=== PATIENT | male | born 1960 | race Caucasian/White ===

== ENCOUNTER → 2016-09-25 | Outpatient (CLI) | payer BC ==
--- NOTE | 2016-09-25 19:40 | PN ---
Patient is coming in for a compliancy check regarding his YOSVANY treatment. He has severe YOSVANY and currently he is on CPAP pressure of 13 cm of water. His main complaint is some leak of air through his mouth and dryness in his mouth when he wakes up and apparently the patient is a mouth breather and he is having difficulties wearing his Mirage FX nose pillow. Despite this, he is doing well, alert and awake during the day and he states the treatment itself has been a success. His AHI while on treatment is down to 3.2. His CPAP use for more than 4 hours is 29 out of 30 and the patient's average CPAP use is around 6.3 hours per night. His leak factor is 29 liters per minute. The patient is obese. The patient's Boss score is down to 8. The patient is obese and he has gained around 8 to 9 pounds since his [facility]. His current vitals: BP is 136/80, pulse 68, respirations 18, temperature 97.5%, saturation 97% on room air. Weight is 241. Height 67 inches. Boss score is at 8. BMI is 37.1. GENERAL APPEARANCE: Obese, calm, comfortable. HEENT: Short neck, crowding posterior pharynx. There is no goiter, neck masses. LUNGS: Clear to auscultation. HEART: Sounds are regular rate and rhythm. Normal S1, S2. ABDOMEN: Soft, nontender. No organomegaly. EXTREMITIES: No edema. No cyanosis or clubbing. IMPRESSIONS: 1. Symptomatic obstructive sleep apnea, severe, currently on CPAP pressure of 13 cm of water. Compliance data is adequate with exception of increased leaks from his mouth as the patient is a mouth breather and he needs to be switched to a different mask interface. 2. Obesity with a body mass index of 37.1. 3. Hypersomnia, improved. PLAN: 1. Switch this patient to an AirFit F10 medium-sized mask. 2. Continue CPAP therapy at the level of pressure. 3. Treatment is successful. 4. See me back in a year's time in follow-up.
== END | disposition home or self-care (01) ==

== ENCOUNTER → 2017-10-01 | Outpatient (CLI) | payer BC ==
--- NOTE | 2017-10-01 20:31 | PN ---
PROGRESS NOTE This patient is coming in for an annual check regarding obstructive sleep apnea. The patient was maintained on a CPAP pressure of 13 cm of water. Note that he has been having some issues with sleep hygiene. His sleep schedule has been a bit off, knowing that the patient is going to work at around 4:15 a.m. in the morning. The patient is going to bed around 9 p.m. and waking up at 2 a.m. in the morning. Sometimes it takes him more than an hour to fall asleep, and I came to find out that the patient was taking a 2-hour nap after he comes back from work. This needs to be eliminated. The CPAP treatment in general has been successful, as the patient is maintained on CPAP pressure of 13 cm of water and he has been averaging more than 4 hours of CPAP use per night and his AHI while on treatment is down to 2. His weight is also up by around 7 pounds. He used to weight 241 and he is currently up to 248. He has undergone [address] Perea. BP is 152/86, pulse 68, respiration 16, temperature 97.4. Saturation is 98% on room air. Weight is 248. Height is 5 feet 7 inches. GENERAL APPEARANCE: Calm, comfortable. Head is atraumatic, normocephalic. Neck is short, supple. No goiter Mallampati class 4. LUNGS: Clear to auscultation. Heart sounds are regular rate and rhythm. Normal S1, S2. Abdomen is soft, nontender. No organomegaly. EXTREMITIES: No edema. No cyanosis or clubbing. IMPRESSION: 1. Symptomatic obstructive sleep apnea, currently on CPAP pressure of 13 cm of water. 2. Poor sleep hygiene, as the patient is taking naps and he is limiting his sleep hours at night. Appropriate have been made to make adjustments on his sleep schedule. 3. Obesity with interval 7-pound weight gain. Current BMI is up to 38. 4. Chronic tiredness and fatigue. 5. Hypertension. PLAN: 1. Encourage weight loss. 2. Optimize sleep hygiene measures and sleep schedule and eliminate all forms of naps in the afternoon or early evening. 3. Go to bed somewhat earlier at around 8 to allow himself to take approximately 6 hours of sleep at night. 4. Continue CPAP at same level of pressure. Treatment has been successful as far as pressure setting and mask interface. We will continue to follow and make further recommendations based on his progress. For now, his CPAP pressure will be kept unchanged. MOHAN / CONNERN: [id number] /
== END | disposition home or self-care (01) ==
LOC: SLEEP 15:53
PROVIDERS: ATTEND Internal Medicine Critical Care Medicine
DX: G47.33 Obstructive sleep apnea (adult) (pediatric) (principal); E66.9 Obesity, unspecified; I10 Essential (primary) hypertension; R53.83 Other fatigue; Z68.38 Body mass index [BMI] 38.0-38.9, adult; Z99.89 Dependence on other enabling machines and devices

== ENCOUNTER → 2018-06-28 | Outpatient (CLI) | payer BC ==
--- NOTE | 2018-06-28 08:00 | MR ---
MR lumbar spine wo con Low back pain Multiplanar, multiecho imaging of the lumbar spine was obtained without contrast on a 3 Shirley magnet. REFERENCE:None. FINDINGS: Paraspinal soft tissues are normal. Vertebral body height and alignment are maintained. Cord signal is maintained. The conus ends normally at the level of the superior endplate of L1. At T12-L1, there is mild disc space loss. Intervertebral widely maintained. There is no significant c ompressive discopathy. There is mild hypertrophic changes in the facets. At L1-2, there is disc space loss and disc desiccation. Intervertebral foramina are well maintained. There is no significant compressive discopathy. There are mild hypertrophic changes in the facets. At L2-3, there is mild, bilateral intervertebral foraminal narrowing. There is a diffuse disc displac ement. There is mild trefoiling of the thecal sac. There is mild hypertrophic change and capsulitis w ithin the facets. At L3-4, there is mild, bilateral intervertebral foraminal narrowing. There is a diffuse disc displac ement. There are hypertrophic changes in the facets. There is mild trefoiling of the thecal sac. At L4-5, there is mild, bilateral intervertebral foraminal narrowing. There is a diffuse disc displac ement. There are severe hypertrophic changes in the facets. There is moderate central canal stenosis. At L5-S1, the intervertebral foramina are well maintained. There is no significant compressive discop athy. There is facet arthropathy and capsulitis. IMPRESSION: 1. DIFFUSE DEGENERATIVE DISC DISEASE AND FACET ARTHROPATHY. 2. VARYING DEGREES OF CENTRAL CANAL COMPROMISE, MOST SEVERE AT L4-5. 3. MULTILEVEL INTERVERTEBRAL FORAMINAL NARROWING.
== END | disposition home or self-care (01) ==
LOC: RADMRIMAIN 07:03
PROVIDERS: ATTEND Family Medicine
DX: M99.73 Connective tissue and disc stenosis of intervertebral foramina of lumbar region (principal); M51.36 Other intervertebral disc degeneration, lumbar region; M46.96 Unspecified inflammatory spondylopathy, lumbar region; G89.29 Other chronic pain
CPT/HCPCS: 72148

== ENCOUNTER → 2018-11-04 | Outpatient (CLI) | payer BC ==
--- NOTE | 2018-11-04 18:27 | PN ---
PROGRESS NOTE This is a 57-year-old male patient coming in for an annual check regarding obstructive sleep apnea treatment. The patient is being treated with a CPAP pressure of 13 cm of water. He remains very compliant. The patient is using a Mirage FX nose mask. Based on the compliance data, the patient has been utilizing his CPAP 25 out of the past 30 days. His average use is around 4.3 hours per night. Leak factor is 28 liters/minute. AHI is down to 3.9. He wakes up early to go to work, and this has limited his number of hours of sleep. Attempts to increase the sleep hours have failed, as I have made recommendations in the past. PHYSICAL EXAMINATION: HIS CURRENT VITALS: BP is 136/73, pulse 80, respirations 17, temperature 98.0, saturation 97% on room air. Weight is 246. Height is 67. [place] score is 8. GENERAL APPEARANCE: Obese, calm, comfortable. Head is atraumatic, normocephalic. Neck is short. There is no JVD. No goiter or neck masses. LUNGS: Diminished; otherwise clear. Heart sounds are regular rate and rhythm. Normal S1, S2. No S3, S4. No murmurs. ABDOMEN: Soft, nontender. No organomegaly. EXTREMITIES: No edema. No cyanosis or clubbing. NEUROLOGIC: The patient is alert and oriented x3. There is no focal neurological deficit. IMPRESSION: 1. Symptomatic obstructive sleep apnea, currently on CPAP at a pressure of 13. 2. Leaks around his Mirage FX nose mask. 3. Obesity. 4. Chronic fatigue and sleepiness, improved. 5. Hypertension. 6. Insufficient sleep syndrome. PLAN: 1. Increase the number of hours of sleep by going to bed earlier. 2. Continue CPAP at a pressure of 13 cm of water. 3. Offer this patient an AirFit N20 nose mask, which will give him a better seal. 4. See me back in 2 years' time in followup. Treatment in general has been successful. MMODL / IJN: [id number] /
== END ==
LOC: SLEEP 16:34
PROVIDERS: ATTEND Internal Medicine Critical Care Medicine
DX: G47.33 Obstructive sleep apnea (adult) (pediatric) (principal); E66.9 Obesity, unspecified; R53.83 Other fatigue; I10 Essential (primary) hypertension; Z99.89 Dependence on other enabling machines and devices

== ENCOUNTER 2019-01-05 09:20 | Day surgery (SDC) | payer BC ==
[2018-12-31 11:15] VITALS: BMI 35.1
[~2019-01-05 09:20] MED LIST: LACTATED RINGERS 1,000 ML IV SCH; LIDOCAINE 1% 20 ML VIAL (10MG/ML) FOR IV START INTRADERMA PRN
[2019-01-05 10:19] VITALS: RESP 16; TEMP 98.6
[2019-01-05] MEDS ORDERED: fentaNYL (PF) 50 MCG/ML 2 ML AMP ONE (11:30)
[2019-01-05] MEDS ORDERED: PROPOFOL 10 MG/ML 20 ML VIAL IV ONE (11:30)
[2019-01-05] MEDS ORDERED: LIDOCAINE 1% INJ 10MG/ML (20 ML MDV) ONE (11:30)
[2019-01-05] MEDS ORDERED: MIDAZOLAM 2 MG/2 ML VIAL ONE (11:30)
--- NOTE | 2019-01-05 12:00 | P.PCN ---
Date of Procedure: 01/05/19 Procedure(s) Performed: Procedure: Total colonoscopy. Preoperative diagnosis: Screening for neoplasia, patient has history of polyps. Postoperative diagnosis: Sigmoid diverticulosis with no evidence of acute diverticulitis, strictures, polyps or cancer. Preparation: HalfLytely prep. Sedation: Was provided by anesthesia. Brief clinical history: The patient a 58-year-old male who is scheduled for this evaluation for screening for neoplasia, age being his risk factor as well as history of polyps. His last exam was 10 years ago. The patient has no abdominal complaints, bleeding or anemia. Procedure: With the patient on his left lateral decubitus position and after informed consent and adequate sedation, the perianal area was inspected and it did not show any fissures or fistulas. There were no masses felt on digital rectal examination. The Olympus CFH 190L video colonoscope was then inserted in the rectum in the usual fashion and advanced to the cecum. There were several diverticular orifices seen scattered in the sigmoid with no evidence of acute diverticulitis or strictures. The mucosa appeared healthy. No polyps or tumors were seen. I retroflexed the endoscope in the rectum before the endoscope was withdrawn. Low-grade internal hemorrhoids were noted with no evidence of ble eding. The patient tolerated the procedure well. Plan: The patient was reassured. Discussed dietary measures. In light of his history, I recommended repeat exam in 5 years. He will follow up with you as planned.
[2019-01-05 12:15] VITALS: BP 157/79; PULSE 72
== END 2019-01-05 12:32 | disposition home or self-care (01) ==
LOC: ORWHC2ENDO 09:20
DX: Z12.11 Encounter for screening for malignant neoplasm of colon (principal); K57.30 Diverticulosis of large intestine without perforation or abscess without bleeding; Z86.010 Personal history of colon polyps; I10 Essential (primary) hypertension; E78.5 Hyperlipidemia, unspecified; G47.33 Obstructive sleep apnea (adult) (pediatric); K21.9 Gastro-esophageal reflux disease without esophagitis; K64.8 Other hemorrhoids; Z79.899 Other long term (current) drug therapy
CPT/HCPCS: J2250; J2001; J3010; J2704; G0105

== ENCOUNTER → 2019-03-09 | Outpatient (CLI) | payer BC ==
--- NOTE | 2019-03-09 23:19 | MR ---
EXAMINATION TYPE: MR tspine/lspine wo con DATE OF EXAM: 03/09/2019 COMPARISON: MR scan lumbar spine 06/28/2018 HISTORY: Mid/lower back pain, BLE radic x 1 yr TECHNIQUE: Multiplanar, multisequence imaging of the lumbar and thoracic spine is performed without I V contrast. FINDINGS: The thoracic and lumbar vertebra have fairly normal alignment. Disc spaces are slightly dereck rowed in the upper lumbar spine at L1-2 and L2-3. There is no significant loss of height. Lumbar nerv e roots appear normal. I see no significant lumbar neural foraminal narrowing. There is no thoracic paraspinal mass. There is no sign of thoracic spinal stenosis. There is no compr ession fracture of the thoracic spine. Thoracic spinal cord has fairly normal signal pattern without evidence of edema. There is no evidence of a cord mass. Brainstem appears intact. There is mild lateral recess stenosis due to facet arthrop athy at L4-5. IMPRESSION: Mild spondylotic changes in the upper lumbar spine. Mild facet arthropathy and lateral recess stenosi s at L4-5. No significant spinal stenosis. No compression fracture. No significant abnormality of the thoracic spine. There is no significant change of the lumbar spine compared to old exam.
== END | disposition home or self-care (01) ==
LOC: RADMRIMAIN 16:50
DX: M99.73 Connective tissue and disc stenosis of intervertebral foramina of lumbar region (principal); M47.816 Spondylosis without myelopathy or radiculopathy, lumbar region; M46.96 Unspecified inflammatory spondylopathy, lumbar region; G89.29 Other chronic pain
CPT/HCPCS: 72146; 72148

== ENCOUNTER → 2019-03-13 | Outpatient (CLI) | payer BC ==
--- NOTE | 2019-03-14 08:00 | MR ---
EXAMINATION TYPE: MR knee LT wo con DATE OF EXAM: 03/13/2019 COMPARISON: None HISTORY: Pain TECHNIQUE: Multiplanar, multisequence imaging of the left knee is performed without IV contrast. FINDINGS: There is narrowing of medial compartment joint space. No erosive changes seen. A large area of marrow edema or contusion involving the medial tibial plateau which may be reactive. There is globular abnormal signal posterior horn of the lateral meniscus suggestive of mucoid degener ation. Globular abnormal signal which does extend to the articular surface involving the posterior ho rn of the medial meniscus suggestive of degenerative tear. There is increased fluid surrounding the MCL. No definite disruption of fibers. Findings are suggesti ve of MCL sprain. There is increased signal within the semimembranosus tendon insertion suggestive of tendinopathy. Subcutaneous edema incidentally noted. Patellar and quadriceps tendons intact. There is fibrillation of the patellar cartilage. Small amount of fluid in the suprapatellar bursa. Lateral collateral ligament is intact. Anterior cruciate ligament is intact. There is increased thick ness signal and thickening involving the body and femoral insertion of the PCL compatible with partia l tear. No fracture line. No sizable popliteal fossa cyst. IMPRESSION: 1. Partial tear PCL 2. MCL strain with no definite tear. 3. Mucoid degeneration involving both menisci with suspicion for degenerative posterior horn medial m eniscal tear. 4. Large area of marrow edema or contusion involving the tibial plateau may be reactive. 5. Osteoarthritis medial compartment of the joint space. 6. Chondromalacia patellar cartilage. 7. There is increased signal N the distal margin of the semimembranosus tendon compatible with tendin osis.
== END | disposition home or self-care (01) ==
LOC: RADMRIMAIN 16:19
DX: S83.282A Other tear of lateral meniscus, current injury, left knee, initial encounter (principal); S83.521A Sprain of posterior cruciate ligament of right knee, initial encounter; S83.242A Other tear of medial meniscus, current injury, left knee, initial encounter; S83.412A Sprain of medial collateral ligament of left knee, initial encounter; M17.12 Unilateral primary osteoarthritis, left knee; M22.42 Chondromalacia patellae, left knee; M76.60 Achilles tendinitis, unspecified leg

== ENCOUNTER → 2020-03-08 | Outpatient (CLI) | payer BC ==
--- NOTE | 2020-03-08 15:09 | PN ---
PROGRESS NOTE Quinton is 59 coming in for an annual check regarding obstructive sleep apnea. He has a [employer]Med AutoSet unit which is fixed at a pressure of 13 cm of water. The patient has been having difficulty in it failing and as such his compliance has gone down. He has gained around 6 pounds since his last evaluation. He has developed spinal stenosis and he is having difficulty with mobility and gait. He is also having a meniscal problem in his left knee. He is not taking any form of narcotics. His medication remains a combination of verapamil and Lipitor. Rest of vitals are all stable. I checked the compliance data from his machine and based on a 90 day compliance,has utilized his machine around 2/3 of the time. His compliancy for more than 4 hours is 37/90 with an average usage of 4.4 hours per night. AHI is 8.6 with a 5.1 central events. He is using a Mirage FX nose mask. REVIEW OF SYSTEMS: Fourteen-point review of system was done. Positive findings are mentioned in history of present illness. He is having difficulty with mobility and gait and chronic back pain. PHYSICAL EXAMINATION: His current vitals: BP is 126/79, pulse 78, respirations 16, temperature 98.2. Saturation 97% on room air. Height is 5 feet 7 inches, weight is 251, BMI 38.8. General appearance: Calm, comfortable. Head atraumatic, normocephalic. Neck: Supple. There is no JVD. No goiter or neck mass. Lungs diminished otherwise clear. Heart sounds are regular rate and rhythm, normal S1, S2. Abdomen is obese, soft, nontender. Organs cannot be palpated. Extremities: No edema no cyanosis or clubbing. Neurologic: Awake and alert. There are no focal neurological deficits. IMPRESSION: 1. Obstructive sleep apnea, currently on CPAP pressure of 13. The patient is having difficulty tolerating CPAP pressure due to exhalation issues. He has also developed some central events and his overall apnea-hypopnea index while on treatment is above 5. There is some limited weight gain. No use of narcotics. No substance abuse. No alcoholism. He is having issues with chronic back pain and spinal stenosis and mobility and gait. 2. Obesity. 3. Chronic fatigue and sleepiness. 4. Hypertension. PLAN: I will switch this patient to an APAP mode. I lowered the starting pressure and start him at a pressure of 7 with an automatic ramp and his maximum pressure will be set at 20. He will be kept on same mask interface. He will be encouraged to lose weight. The patient will see me back in 4 6 weeks' time. We will make re-evaluation of his compliancy and data and his ability to tolerate APAP and will decide accordingly if to continue to treatment or do another titration. We will continue to follow. MOHAN / CONNERN: [id number] /
== END | disposition home or self-care (01) ==
LOC: SLEEP 13:12
PROVIDERS: ATTEND Internal Medicine Critical Care Medicine
DX: G47.33 Obstructive sleep apnea (adult) (pediatric) (principal); E66.9 Obesity, unspecified; R53.82 Chronic fatigue, unspecified; I10 Essential (primary) hypertension; G89.29 Other chronic pain; M54.9 Dorsalgia, unspecified; R26.9 Unspecified abnormalities of gait and mobility; Z99.89 Dependence on other enabling machines and devices; Z68.38 Body mass index [BMI] 38.0-38.9, adult

== ENCOUNTER → 2020-03-17 | Day surgery (SDC) | payer BC ==
[2020-03-10 12:10] VITALS: BMI 37.3
--- NOTE | 2020-03-16 16:57 | HP ---
HISTORY AND PHYSICAL DATE OF SERVICE: 03/17/2020 Quinton Merida is a 59-year-old patient seen with progressive left knee pain. We discussed options. He elected to proceed with arthroscopy. Consent regarding procedure was obtained. PAST MEDICAL HISTORY: Hypertension, hyperlipidemia. PAST SURGICAL HISTORY: Sinus surgery, spine surgery, herniorrhaphy. DAILY MEDICATIONS: Atorvastatin, verapamil. ALLERGIES: None. SOCIAL HISTORY: Denies tobacco use. PHYSICAL EVALUATION OF THE LEFT KNEE: Range of motion is -2/3-120. Mild effusion. Tenderness medial joint line. Positive medial Jl's. Ligaments stable. Hip rotation without pain. Distal neurovascular exam intact. RADIOGRAPHS OF THE LEFT KNEE: Revealed moderate osteoarthritis. MRI left knee revealed medial meniscal tear and osteoarthritis. IMPRESSION: 1. Internal derangement, left knee with medial meniscal tear. 2. Left knee osteoarthritis. 3. Hypertension. 4. Hyperlipidemia. PLAN: Left knee arthroscopy with partial meniscectomy, partial synovectomy and debridement. MMODL / IJN: [id number] /
[~2020-03-17] MED LIST changes: +BUPIVACAINE (PF) 0.25% 30 ML VIAL SQ ONE; +DEXAMETHASONE SOD PHOSPHATE 10 MG/ML 1 ML VIAL IV ONE; +HYDROcodone/APAP 5-325MG 1 EACH TAB ONE; +HYDROcodone/APAP 5-325MG 1 EACH TAB PO ONE; +HYDROmorphone 0.5 MG/0.5 ML SYRINGE IVP PRN; +LIDOCAINE 1% (10MG/ML) FOR IV START SQ ONE; -LIDOCAINE 1% 20 ML VIAL (10MG/ML) FOR IV START INTRADERMA PRN; +LIDOCAINE 1% INJ 10MG/ML (20 ML MDV) ONE; +MIDAZOLAM 2 MG/2 ML VIAL ONE; +ONDANSETRON 4 MG/2 ML VIAL IVP ONE; +ONDANSETRON 4 MG/2 ML VIAL ONE; +PROPOFOL 10 MG/ML 20 ML VIAL IV ONE; +SUCCINYLCHOLINE CHLORIDE 100 MG/5 ML SYR IV ONE; +fentaNYL (PF) 50 MCG/ML 2 ML AMP ONE
--- NOTE | 2020-03-17 16:18 | P.OP ---
Date of Procedure: 03/17/20 Preoperative Diagnosis: Internal derangement left knee Postoperative Diagnosis: 1. Tear medial meniscus left knee 2. Grade 2 chondromalacia medial femoral condyle left knee 3. Reactive synovitis medial, lateral and suprapatellar compartments left Procedure(s) Performed: 1. Arthroscopic partial medial meniscectomy left knee 2. Arthroscopic chondroplasty medial femoral condyle left knee 3. Arthroscopic partial synovectomy medial, lateral and suprapatellar compartments left knee Anesthesia: [facility], local Surgeon: Stephon Vaughn Estimated Blood Loss (ml): 7 Pathology: none sent Condition: stable Disposition: PACU Indications for Procedure: 59-year-old patient seen with progressive left knee pain. After treatment options were discussed, he elected to proceed with arthroscopy. Operative Findings: See description of procedure Description of Procedure: Patient was taken to the operative suite. Patient underwent a general anesthetic by the department of anesthesia. Patient was given preoperative antibiotics. The left lower extremity was placed in a well-padded arthroscopic leg clinton. The left leg was prepped and draped in the normal sterile orthopedic fashion. A lateral parapatellar and suprapatellar incision was made. Trochars were inserted. Arthroscopy was initiated. Suprapatellar pouch revealed diffuse thick reactive synovitis. The patellofemoral joint appeared to articulate congruently. There were grade 1 chondromalacia changes of the patella with no osteochondral tears present. The scope was guided into the medial gutter. No loose bodies or plica were identified. The scope was then guided into the medial compartment. A medial parapatellar incision was made. Trocar inserted followed by probe. There was a tear involving the posterior horn/Route medial meniscus. There were grade 2 chondral malacia changes of the medial femoral condyle with some osteochondral flap tears present. There was thick reactive synovitis anteriorly. I performed a partial medial meniscectomy. I performed a chondroplasty of the medial femoral condyle. I performed a partial synovectomy. The residual meniscus was stable. The residual osteochondral surface was stable. There was good decompression of the synovitis. Scope and probe were then guided into the intercondylar notch. Cruciates were identified, probed and found to be stable. The scope and probe were then guided into lateral compartment. Lateral meniscus was probed and found to be stable. There was no significant chondromalacia. There was some thick reactive synovitis anteriorly. I introduced a motorized shaver and perfo rmed a partial synovectomy. There was good decompression of the synovitis. The scope was in guided back into the suprapatellar compartment. I introduced a motorized shaver into the suprapatellar compartment. I debrided some piecemeal fragments of meniscus I encountered. I performed a partial synovectomy. Shaver was removed. I took one more look on the entire knee, no residual debris. Instruments were now removed from the joint. The joint was infiltrated with .25% Marcaine. Steri-Strips were applied to the portal sites. Sterile dressings were applied. The patient was placed into a ALLEN hose. No tourniquet was utilized. The patient was awakened, transferred to a bed and taken to recovery stable satisfactory condition.
[2020-03-18 06:06] VITALS: BP 161/87; PULSE 67; RESP 16; TEMP 96.8
== END | disposition home or self-care (01) ==
LOC: OR 11:26
PROVIDERS: ATTEND Orthopaedic Surgery
DX: S83.242A Other tear of medial meniscus, current injury, left knee, initial encounter (principal); M94.262 Chondromalacia, left knee; M17.12 Unilateral primary osteoarthritis, left knee; M65.9 Synovitis and tenosynovitis, unspecified; M48.061 Spinal stenosis, lumbar region without neurogenic claudication; M51.36 Other intervertebral disc degeneration, lumbar region; I10 Essential (primary) hypertension; E78.2 Mixed hyperlipidemia; E66.9 Obesity, unspecified; K59.04 Chronic idiopathic constipation; K21.9 Gastro-esophageal reflux disease without esophagitis; G47.33 Obstructive sleep apnea (adult) (pediatric); G47.30 Sleep apnea, unspecified; Z79.51 Long term (current) use of inhaled steroids; Z79.899 Other long term (current) drug therapy; Z85.820 Personal history of malignant melanoma of skin; Z82.49 Family history of ischemic heart disease and other diseases of the circulatory system; Z99.89 Dependence on other enabling machines and devices; Z87.19 Personal history of other diseases of the digestive system; Z68.38 Body mass index [BMI] 38.0-38.9, adult
CPT/HCPCS: 29881; 29876; J2250; J1100; J0690; J2405; J2001; J3010; J0330; J2704

== ENCOUNTER → 2020-05-17 | Outpatient (CLI) | payer BC ==
--- NOTE | 2020-05-17 15:31 | PN ---
PROGRESS NOTE This is a 59-year-old male patient coming in for a followup. The patient was last seen around 3 months ago, and back then he was having difficulty tolerating his CPAP machine. It was set at a pressure of 13 cm of water. Based on that, I switched him to an APAP mode with a minimum pressure of 7 and a maximum pressure of 20, and today he is coming in for another compliancy check. His average usage number has improved. It is up to 5.4 hours. His tolerability has improved. He is still using the Mirage FX nose mask. His AHI is still at 8.3 with a component of central events with a central apnea index of 5.1. He has gained around 3 pounds since his last evaluation. He is having knee pain. He is having difficulty with mobility, as the patient has spinal stenosis and sciatica. Otherwise, the rest of the medications are the same. Pulse ox on room air is 97%. No gastric distention. No swallowing of air. No gas. No chest pain. No shortness of breath. Heart no heartburn. REVIEW OF SYSTEMS: Unchanged compared to his last evaluation. He is still having difficulty with mobility and gait and walking and he has gained around 3 pounds. He has chronic back pain and sciatica. PHYSICAL EXAMINATION: BP 144/84, pulse 84, respirations 16, temperature 98.1, saturation 97% on room air. Height is 5 feet 7 inches, weight is 254, BMI is 39.4. [place] score is at 4. GENERAL APPEARANCE: Calm, comfortable. HEAD: Atraumatic, normocephalic. NECK: Supple. No JVD. No goiter or neck masses. LUNGS: Clear to auscultation. HEART: Heart sounds are regular rate and rhythm. Normal S1, S2. No S3, S4. No murmurs. ABDOMEN: Soft, nontender. No organomegaly. EXTREMITIES: No edema. No cyanosis or clubbing. NEUROLOGIC: Awake and alert. There is no focal neurological deficit. IMPRESSION: 1. Obstructive sleep apnea, currently on APAP, minimum pressure of 7, maximum pressure of 20. 2. Hypersomnia, improving. 3. Obesity with a body mass index of 39.1. 4. Sciatica. 5. Spinal stenosis. 6. Meniscal tear of the knee. 7. Hypertension. PLAN: 1. Continue APAP mode of treatment at a minimum pressure of 7, maximum pressure of 20. 2. Mirage FX nose mask. 3. Encourage weight loss. 4. A few central events were noted. We are going to monitor those. See me back in a year's time. MMPARVEZ / IJN: [id number] /
== END | disposition home or self-care (01) ==
LOC: SLEEP 13:35
PROVIDERS: ATTEND Internal Medicine Critical Care Medicine
DX: G47.33 Obstructive sleep apnea (adult) (pediatric) (principal); G47.10 Hypersomnia, unspecified; E66.9 Obesity, unspecified; I10 Essential (primary) hypertension; M54.30 Sciatica, unspecified side; M48.00 Spinal stenosis, site unspecified; S83.209A Unspecified tear of unspecified meniscus, current injury, unspecified knee, initial encounter; Z68.39 Body mass index [BMI] 39.0-39.9, adult; Z99.89 Dependence on other enabling machines and devices

== ENCOUNTER → 2020-10-05 | Outpatient (CLI) | payer BC ==
--- NOTE | 2020-10-05 20:50 | MR ---
EXAMINATION TYPE: MR lumbar spine wo con DATE OF EXAM: 10/05/2020 COMPARISON: 06/28/2018 HISTORY: Low back pain for 2 years. CONTRAST: 0 mL intravenous Gadavist. TECHNIQUE: Multiplanar, multisequence images of the lumbar spine were acquired. FINDINGS: Cord terminates at the L1 level. L5-S1: No significant disc bulge or disc herniation. No foraminal stenosis. Facet hypertrophy is pr esent. Some ligamentum flavum laxity is present. No lateral canal narrowing is present. No AP spinal canal stenosis is present. L4-L5: Broad-based disc bulge is present. This has mild anterior thecal sac flattening. Facet hypertr ophy and ligamentum flavum laxity has posterior lateral thecal sac compression. Some lateral canal na rrowing is present. No AP spinal canal stenosis is present. Neural foramen are patent. L3-L4: Minimal disc bulge has anterior thecal sac contact. No spinal canal stenosis present. Facet hy pertrophy and posterior lateral thecal sac compression from ligamentum flavum laxity is present. Neur al foramen are patent. L2-L3: No significant disc bulge or disc herniation. No spinal canal stenosis. No foraminal stenosi s. L1-L2: No significant disc bulge or disc herniation. No spinal canal stenosis. No foraminal stenosi s. T12-L1: No significant disc bulge or disc herniation. No spinal canal stenosis. No foraminal stenos is. IMPRESSION: 1. Facet hypertrophy through the mid and lower lumbar spine. This appears greatest at the L4-5 level contributing to some lateral canal narrowing. Some milder osteophyte lateral thecal sac compression i s present L3-4 and L5-S1. 2. Mild disc bulge with anterior thecal sac contact. No AP spinal canal stenosis is present. 3. Findings appear similar to the comparison of 06/28/2018.
== END | disposition home or self-care (01) ==
LOC: RADMRIMAIN 19:37
PROVIDERS: ATTEND Orthopaedic Surgery
DX: M48.061 Spinal stenosis, lumbar region without neurogenic claudication (principal); M51.26 Other intervertebral disc displacement, lumbar region; M25.78 Osteophyte, vertebrae; G95.29 Other cord compression; M89.38 Hypertrophy of bone, other site
CPT/HCPCS: 72148

== ENCOUNTER 2020-10-18 09:40 | Day surgery (SDC) | payer BC ==
[2020-10-14 15:29] VITALS: BMI 36.6
[~2020-10-18 09:40] MED LIST changes: -BUPIVACAINE (PF) 0.25% 30 ML VIAL SQ ONE; -DEXAMETHASONE SOD PHOSPHATE 10 MG/ML 1 ML VIAL IV ONE; -HYDROcodone/APAP 5-325MG 1 EACH TAB ONE; -HYDROcodone/APAP 5-325MG 1 EACH TAB PO ONE; -HYDROmorphone 0.5 MG/0.5 ML SYRINGE IVP PRN; -LIDOCAINE 1% (10MG/ML) FOR IV START SQ ONE; -LIDOCAINE 1% INJ 10MG/ML (20 ML MDV) ONE; -MIDAZOLAM 2 MG/2 ML VIAL ONE; -ONDANSETRON 4 MG/2 ML VIAL IVP ONE; -ONDANSETRON 4 MG/2 ML VIAL ONE; -PROPOFOL 10 MG/ML 20 ML VIAL IV ONE; -SUCCINYLCHOLINE CHLORIDE 100 MG/5 ML SYR IV ONE; -fentaNYL (PF) 50 MCG/ML 2 ML AMP ONE
[2020-10-18 10:13] VITALS: RESP 16; TEMP 97.5
[2020-10-18] MEDS ORDERED: IOPAMIDOL M200 10 ML VIAL ONE (10:36)
[2020-10-18] MEDS ORDERED: fentaNYL (PF) 50 MCG/ML 2 ML AMP ONE (10:36)
[2020-10-18] MEDS ORDERED: MIDAZOLAM 2 MG/2 ML VIAL ONE (10:36)
[2020-10-18] MEDS ORDERED: ENALAPRILAT 1.25 MG/ML 1 ML VIAL ONE (10:36)
[2020-10-18] MEDS ORDERED: methylPREDNISolone ACETATE 40 MG/ML 1 ML VIAL ONE (10:36)
--- NOTE | 2020-10-18 10:49 | P.PCN ---
Date of Procedure: 10/18/20 Procedure(s) Performed: PREOPERATIVE DIAGNOSIS: Lumbar radiculopathy . POSTOPERATIVE DIAGNOSIS: Same as preoperative diagnoses. PROCEDURE 1. Transforaminal epidural steroid injection under fluoroscopic guidance at right L4-5 level. (Fluoroscopy images stored on file in the radiology Department ) 2. Lumbar epidurogram . ANESTHESIA: Local with 1% lidocaine 3 ml , moderate sedation with intravenous Versed 2 mg and fentanyle 50 micrograms. EBL: Minimal PROCEDURE INDICATION: The patient with low back pain and radiculopathy symptoms unresponsive to conservative treatment. PROCEDURE DESCRIPTION / TECHNIQUE: The patient was seen and identified in the preoperative area. Risks, benefits, complications, and alternatives were discussed with the patient. The patient agreed to proceed with the procedure and signed the consent. IV was started, and vital signs were stable. Patient was taken to the OR and time out was completed. The patient was placed in the prone position on procedure table and a pillow was placed under the abdomen to reduce lumbar lordosis. The lumbosacral area was prepped and draped in the usual sterile fashion. Critical pause was taken. Vital signs were closely monitored during the procedure. Conscious sedation was used during the procedure to decrease patient s anxiety. Using oblique fluoroscopy, the chin of the ``Mango dog at right L4-5 level was identified, and the skin and deeper tissues just below was localized with 1% lidocaine. Subsequently, a 22-gauge 5-inch spinal needle was advanced under a tunneled view fluoroscopic guidance just underneath the chin of the ``Mango dog at the right L4-5 Under lateral fluoroscopy, the needle was then advanced to the posterior border of the interforaminal space. After negative aspiration of CSF and blood and with no paresthesias, 1 mL Isovue 200 contrast dye was injected excellent epidurogram and outlining of the nerve root Subsequently, 3 mL of block solution containing 40 mg Depo-Medrol and 2 mL of 0.9% normal saline PF was injected. Needle was removed . At the end of the procedure, skin was cleansed, and bandages were applied. COMPLICATIONS:none DISPOSITION / PLANS: The patient was placed in a supine position and transferred to the recovery area in a stable condition for observation. There was no evidence of lower extremity motor or sensory deficit after the procedure. Patient was discharged from the recovery room after meeting discharge criteria. Home discharge instructions were given to the patient by the staff. The patient was reexamined prior to discharge.
[2020-10-18] MEDS ORDERED: IV FLUID CONTINUATION 1,000 ML IV ONE (10:53)
[2020-10-18] MEDS ORDERED: LACTATED RINGERS 800 ML IV ONE (10:53)
[2020-10-18 11:19] VITALS: BP 143/88; PULSE 72
--- NOTE | 2020-10-18 14:30 | FL ---
EXAMINATION TYPE: FL guided pain mgmt statistic DATE OF EXAM: 10/18/2020 CLINICAL HISTORY: Low back pain. TECHNIQUE: Fluoroscopy. COMPARISON: MR lumbar spine October 05, 2020 FINDINGS: Fluoroscopic guidance was provided during pain relief procedure performed by Dr. Hills . A total of 5 seconds of fluoroscopic time was utilized during the procedure and 1 spot images are acquired. Single image acquired shows needle localization with contrast injection off the midline in the mid to lower lumbar spine. IMPRESSION: As Above.
== END 2020-10-18 11:32 | disposition home or self-care (01) ==
LOC: ORPAIN 09:40
PROVIDERS: ATTEND Specialist
DX: M54.16 Radiculopathy, lumbar region (principal)
CPT/HCPCS: 64483; J2250; J1030; J3010; Q9966

== ENCOUNTER 2020-11-17 09:26 | Day surgery (SDC) | payer BC ==
[2020-10-31 11:45] VITALS: BMI 38.0
[2020-11-17 09:42] VITALS: RESP 16; TEMP 97
[2020-11-17] MEDS ORDERED: LIDOCAINE 1% (10MG/ML) FOR IV START INTRADERMA ONE (09:49)
[2020-11-17] MEDS ORDERED: IOPAMIDOL M200 10 ML VIAL ONE (10:47)
[2020-11-17] MEDS ORDERED: fentaNYL (PF) 50 MCG/ML 2 ML AMP ONE (10:47)
[2020-11-17] MEDS ORDERED: MIDAZOLAM 2 MG/2 ML VIAL ONE (10:47)
[2020-11-17] MEDS ORDERED: methylPREDNISolone ACETATE 40 MG/ML 1 ML VIAL ONE (10:47)
--- NOTE | 2020-11-17 10:56 | P.PCN ---
Date of Procedure: 11/17/20 Procedure(s) Performed: PREOPERATIVE DIAGNOSIS: Lumbar radiculopathy . POSTOPERATIVE DIAGNOSIS: Same as preoperative diagnoses. PROCEDURE 1. Transforaminal epidural steroid injection under fluoroscopic guidance at right L4-5 level # 2nd . (Fluoroscopy images stored on file in the radiology Department ) 2. Lumbar epidurogram . ANESTHESIA: Local with 1% lidocaine 3 ml , moderate sedation with intravenous Versed 2 mg and fentanyle 50 micrograms. EBL: Minimal PROCEDURE INDICATION: The patient with low back pain and radiculopathy symptoms unresponsive to conservative treatment. PROCEDURE DESCRIPTION / TECHNIQUE: The patient was seen and identified in the preoperative area. Risks, benefits, complications, and alternatives were discussed with the patient. The patient agreed to proceed with the procedure and signed the consent. IV was started, and vital signs were stable. Patient was taken to the OR and time out was completed. The patient was placed in the prone position on procedure table and a pillow was placed under the abdomen to reduce lumbar lordosis. The lumbosacral area was prepped and draped in the usual sterile fashion. Critical pause was taken. Vital signs were closely monitored during the procedure. Conscious sedation was used during the procedure to decrease patient s anxiety. Using oblique fluoroscopy, the chin of the ``Mango dog at right L4-5 level was identified, and the skin and deeper tissues just below was localized with 1% lidocaine. Subsequently, a 22-gauge 5-inch spinal needle was advanced under a tunneled view fluoroscopic guidance just underneath the chin of the ``Mango dog at the right L4-5 Under lateral fluoroscopy, the needle was then advanced to the posterior border of the interforaminal space. After negative aspiration of CSF and blood and with no paresthesias, 1 mL Isovue 200 contrast dye was injected excellent epidurogram and outlining of the nerve root Subsequently, 3 mL of block solution containing 80 mg Depo-Medrol and 2 mL of 0.9% normal saline PF was injected. Needle was removed . At the end of the procedure, skin was cleansed, and bandages were applied. COMPLICATIONS:none DISPOSITION / PLANS: The patient was placed in a supine position and transferred to the recovery area in a stable condition for observation. There was no evidence of lower extremity motor or sensory deficit after the procedure. Patient was discharged from the recovery room after meeting discharge criteria. Home discharge instructions were given to the patient by the staff. The patient was reexamined prior to discharge.
[2020-11-17 11:04] VITALS: PULSE 68
[2020-11-17 11:23] VITALS: BP 143/76
[2020-11-17] MEDS ORDERED: IV FLUID CONTINUATION 1,000 ML IV ONE (11:34)
--- NOTE | 2020-11-17 11:35 | FL ---
EXAMINATION TYPE: FL guided pain mgmt statistic DATE OF EXAM: 11/17/2020 HISTORY: Fluoroscopy time 5 seconds of fluoroscopy provided. IMPRESSION: 1. Fluoroscopy time.
== END 2020-11-17 11:35 | disposition home or self-care (01) ==
LOC: ORPAIN 09:26
PROVIDERS: ATTEND Specialist
DX: M54.16 Radiculopathy, lumbar region (principal)
CPT/HCPCS: 64483; J2250; J1030; J3010; Q9966

== ENCOUNTER → 2020-12-07 | Outpatient (CLI) | payer BC ==
--- NOTE | 2020-12-07 13:12 | MR ---
EXAMINATION TYPE: MR knee RT wo con DATE OF EXAM: 12/07/2020 COMPARISON: Plain film 11/25/2020 HISTORY: Right knee pain, outer side and behind knee x 1 year TECHNIQUE: Multiplanar, multisequence imaging of the right knee is performed without IV contrast. FINDINGS: MEDIAL MENISCUS: Anterior and posterior horns are intact without tear. LATERAL MENISCUS: Anterior and posterior horns are intact without tear. CRUCIATE LIGAMENTS: The anterior and posterior cruciate ligaments are intact and unremarkable. COLLATERAL LIGAMENTS: The medial collateral ligament and lateral collateral ligament complex are inta ct and unremarkable. EXTENSOR MECHANISM: Visualized quadriceps and patellar tendons are intact. EFFUSION: No significant suprapatellar joint effusion. POPLITEAL CYST: Semimembranosus gastrocnemius cyst is present measuring approximately 2.3 cm in AP d imension by 3 cm in cephalad to caudal dimension by 7 mm in transverse dimension, there may be leak o f fluid along the proximal leg.. TRICOMPARTMENT SPACES: Some loss of joint space patellofemoral joint and medial compartment CARTILAGE: Grade 3 to grade IV chondromalacia present at the posterior patella, grade III chondromala bella in the medial femoral condyle and lateral compartment of the proximal tibia, coronal image #21 BONE MARROW SIGNAL: Some minimal subchondral increased signal present in the posterior patella OTHER: Subcutaneous edema changes are present in the prepatellar tendon location IMPRESSION: Osteoarthritis. Mojica's cyst.
== END | disposition home or self-care (01) ==
LOC: RADMRIMAIN 09:04
PROVIDERS: ATTEND Orthopaedic Surgery
DX: M17.11 Unilateral primary osteoarthritis, right knee (principal); M71.21 Synovial cyst of popliteal space [Baker], right knee

== ENCOUNTER 2020-12-27 11:40 | Day surgery (SDC) | payer BC ==
[2020-12-22 12:10] VITALS: BMI 36.4
[2020-12-27 12:04] VITALS: TEMP 98
[2020-12-27] MEDS ORDERED: fentaNYL (PF) 50 MCG/ML 2 ML AMP ONE (12:42)
[2020-12-27] MEDS ORDERED: methylPREDNISolone ACETATE 40 MG/ML 1 ML VIAL ONE (12:42)
[2020-12-27] MEDS ORDERED: MIDAZOLAM 2 MG/2 ML VIAL ONE (12:42)
[2020-12-27] MEDS ORDERED: ROPIVACAINE 5MG/ML 20ML VIAL ONE (12:42)
--- NOTE | 2020-12-27 12:56 | P.PCN ---
Date of Procedure: 12/27/20 Procedure(s) Performed: Procedure= Right sacroiliac joints steroid injection under fluoroscopy guidance (fluoroscopy image stored on file in the radiology Department ) Preoperative diagnosis= 1- Right sacroiliitis . Postoperative diagnosis=Same as preop Diagnosis . Complication = none Condition= stable Anesthesia= moderate sedation with intravenous Versed 2 mg , and fentanyl 50 micrograms . Indication for the procedure= patient complaining of low back pain , examination was positive for severe tenderness over the right sacroiliac joints , and patient diagnosed with sacroiliitis, for this reason he was good candidate for sacroiliac joint steroid injection. Description of the procedure= procedure risk and benefits discussed with the patient, including but not limited, risk of infection and bleeding, and ALLERGIC reaction to the medication and not complete pain relief and patient agreed with the preceding patient taken to the operating room, placed in prone position or standard monitors applied to the patient then after induction of anesthesia back prepped with chlorhexidine 3 times , Then under strict sterile technique, first I did the right sacroiliac joint the which was identified under fluoroscopy guidance been local infiltration of the skin and subcu interstitial with lidocaine 1% then 22-gauge Quincke Needle advanced slowly under fluoroscopy and placed in the right sacroiliac joint needle placement confirmed with AP and oblique and lateral view and after appropriate needle placement confirmed and after negative aspiration, or heme , then Ropivacaine 0.5% 4 mL, and 60 mg of Depo-Medrol mixed together and injected in the right sacroiliac joint after negative aspiration patient tolerated the procedure well without any complication.
[2020-12-27] MEDS ORDERED: IV FLUID CONTINUATION 800 ML IV ONE (12:59)
[2020-12-27 13:14] VITALS: PULSE 72; RESP 16
[2020-12-27 13:26] VITALS: BP 120/75
--- NOTE | 2020-12-27 13:50 | FL ---
EXAMINATION TYPE: FL guided pain mgmt statistic DATE OF EXAM: 12/27/2020 FLUOROSCOPY Fluoroscopy time of 4 seconds was used during right SI joint injection. 1 image/s document/s the pro cedure.
== END 2020-12-27 13:31 | disposition home or self-care (01) ==
LOC: ORPAIN 11:40
PROVIDERS: ATTEND Specialist
DX: M46.1 Sacroiliitis, not elsewhere classified (principal); Z82.49 Family history of ischemic heart disease and other diseases of the circulatory system; I10 Essential (primary) hypertension; F32.9 Major depressive disorder, single episode, unspecified; Z98.890 Other specified postprocedural states; Z79.3 Long term (current) use of hormonal contraceptives
CPT/HCPCS: 27096

== ENCOUNTER → 2021-01-09 | Outpatient (CLI) | payer BC ==
[2021-01-09 10:19] LABS: Basophils % (A) 1 %; Eosinophils # (A) 0.2 k/uL (0-0.7); Eosinophils % (A) 2 %; HCT 45.3 % (39.0-53.0); HGB 14.9 gm/dL (13.0-17.5); Lymphocytes # (A) 1.7 k/uL (1.0-4.8); Lymphocytes % (A) 26 %; MCH 28.2 pg (25.0-35.0); MCHC 32.8 g/dL (31.0-37.0); MCV 85.8 fL (80.0-100.0); Mean Platelet Volume 6.5; Monocytes # (A) 0.6 k/uL (0-1.0); Monocytes % (A) 9 %; Neutrophils # (A) 3.9 k/uL (1.3-7.7); Neutrophils % (A) 60 %; Platelet Count 315 k/uL (150-450); RBC 5.28 m/uL (4.30-5.90); RDW 13.7 % (11.5-15.5); WBC 6.4 k/uL (3.8-10.6)
== END | disposition home or self-care (01) ==
LOC: LABPAT 09:26
PROVIDERS: ATTEND Orthopaedic Surgery
DX: Z01.818 Encounter for other preprocedural examination (principal); M23.91 Unspecified internal derangement of right knee
CPT/HCPCS: 36415; 80051; 85025; 93005

== ENCOUNTER 2021-01-24 08:50 | Day surgery (SDC) | payer BC ==
[2021-01-19 15:01] VITALS: BMI 36.6
[2021-01-24 09:52] VITALS: TEMP 97.9
[2021-01-24] MEDS ORDERED: LIDOCAINE 1% (10MG/ML) FOR IV START INTRADERMA ONE (09:52)
[2021-01-24] MEDS ORDERED: TRIAMCINOLONE ACETONIDE 40 MG/ML 1 ML VIAL ONE (10:07)
[2021-01-24] MEDS ORDERED: MIDAZOLAM 2 MG/2 ML VIAL ONE (10:07)
[2021-01-24] MEDS ORDERED: fentaNYL (PF) 50 MCG/ML 2 ML AMP ONE (10:07)
[2021-01-24] MEDS ORDERED: ROPIVACAINE 5MG/ML 20ML VIAL ONE (10:07)
--- NOTE | 2021-01-24 10:19 | P.PCN ---
Date of Procedure: 01/24/21 Surgeon: Kenyetta Hare Pathology: none sent Condition: stable Disposition: PACU Description of Procedure: Preoperative diagnoses= sacroiliac joint dysfunction and sacroiliitis on the r ight side Postoperative diagnoses= same as preoperative diagnosis. Procedure= sacroiliac joint steroid injection under fluoroscopic guidance. Anesthesia= local anesthesia with lidocaine 1% and IV moderate conscious sedation with fentanyl and Versed Estimated blood loss=minimal. Procedure indication= the patient had a history of severe chronic low back pain, diagnosed with sacroiliitis and lumbar sacral facet arthropathy unresponsive to conservative treatment. Procedure description= the patient was seen and identified in the preoperative holding area, risks and benefits and alternative of the procedure and possible complications discussed with the patient, patient signed the consent. an IV was started, and vital signs were monitored and were stable throughout the pr ocedure, patient was placed in the prone position or table and the lumbosacral area was prepped and draped with a sterile fashion, vital signs were closely monitored during the procedure.The sacroiliac joint was identified on the AP view of fluoroscopy then the C-arm was tilted to the contralateral oblique position to superimpose the anterior and posterior joint lines on each other and to have a unified joint line with the target point at the inferior one third of this line. I used 22-gauge 3-1/2 inch Quincke spinal needle for this procedure and after getting into the sacroiliac joint I injected 40 mg of Kenalog +2 MLS of Ropivacaine 0.5%. Patient tolerated the procedure well without any complication, The patient returned to supine position after the back was cleaned and a Band- Aid applied, the patient transported to recovery room in stable condition and he was monitored for 30 minutes before she was discharged home in stable condition . patient will follow up with the pain clinic in a few weeks. A copy of the needle placement was saved to the C-arm machine.
[2021-01-24] MEDS ORDERED: IV FLUID CONTINUATION 800 ML IV ONE (10:25)
--- NOTE | 2021-01-24 10:59 | FL ---
EXAMINATION TYPE: FL guided pain mgmt statistic DATE OF EXAM: 01/24/2021 CLINICAL HISTORY: Right sacroiliac joint pain. TECHNIQUE: Fluoroscopy. COMPARISON: None. FINDINGS: Fluoroscopic guidance was provided during pain relief procedure performed by Dr. Hare . A total of 5 seconds of fluoroscopic time was utilized during the procedure and 1 spot images are a cquired. Single image acquired shows needle localization at the inferior sacroiliac joint level. IMPRESSION: As Above.
[2021-01-24 11:19] VITALS: RESP 20
[2021-01-24 11:21] VITALS: BP 128/70; PULSE 77
== END 2021-01-24 11:10 | disposition home or self-care (01) ==
LOC: ORPAIN 08:50
PROVIDERS: ATTEND Anesthesiology
DX: G89.29 Other chronic pain (principal); M53.3 Sacrococcygeal disorders, not elsewhere classified
CPT/HCPCS: 27096; J2250; J3301; J3010; J2795

== ENCOUNTER 2021-01-26 10:58 | Day surgery (SDC) | payer BC ==
[2021-01-19 15:17] VITALS: BMI 36.6
--- NOTE | 2021-01-25 17:36 | HP ---
HISTORY AND PHYSICAL DATE OF SURGERY: 01/26/2021 Quinton Merida is a 60-year-old gentleman seen with progressive right knee pain. We discussed options for treatment. He elected to proceed with arthroscopy. Consent obtained. PAST MEDICAL HISTORY: Hypertension, hyperlipidemia. PAST SURGICAL HISTORY: Herniorrhaphy, knee arthroscopy, sinus surgery, spine surgery. DAILY MEDICATIONS: Atorvastatin, verapamil. ALLERGIES: NONE. SOCIAL HISTORY: He denies tobacco use. PHYSICAL EVALUATION OF THE RIGHT KNEE: His range of motion is zero to 125. Mild effusion. Tenderness, medial joint line. Positive medial Jl's. Ligaments stable. Hip rotation without pain. Distal neurovascular exam intact. RADIOGRAPHS: Right knee radiographs revealed mild osteoarthritis. MRI of right knee revealed grade 3 chondromalacia of the medial femoral condyle and patella. IMPRESSION: 1. Internal derangement of right knee with osteochondral tear. 2. Right knee osteoarthritis. 3. Hypertension. 4. Hyperlipidemia. PLAN: Right knee arthroscopy with chondroplasty and debridement. MMODL / IJN: [id number] /
[~2021-01-26 10:58] MED LIST changes: +DEXAMETHASONE SOD PHOSPHATE 4 MG/ML 1 ML VIAL IV ONE; +HYDROmorphone 0.5 MG/0.5 ML SYRINGE IVP PRN; +LIDOCAINE 1% (10MG/ML) FOR IV START INTRADERMA PRN; +MIDAZOLAM 2 MG/2 ML VIAL IV PRN; +ONDANSETRON 4 MG/2 ML VIAL IVP ONE
[2021-01-26] MEDS ORDERED: SUCCINYLCHOLINE CHLORIDE VIAL 200 MG/10 ML VIAL IV ONE (12:08)
[2021-01-26] MEDS ORDERED: fentaNYL (PF) 50 MCG/ML 2 ML AMP ONE (12:08)
[2021-01-26] MEDS ORDERED: PROPOFOL 10 MG/ML 20 ML VIAL IV ONE (12:08)
[2021-01-26] MEDS ORDERED: LIDOCAINE 1% INJ 10MG/ML (20 ML MDV) ONE (12:08)
[2021-01-26] MEDS ORDERED: MIDAZOLAM 2 MG/2 ML VIAL ONE (12:08)
[2021-01-26] MEDS ORDERED: BUPIVACAINE (PF) 0.25% 30 ML VIAL SQ ONE ×2 (12:29→12:42)
--- NOTE | 2021-01-26 12:56 | P.OP ---
Date of Procedure: 01/26/21 Preoperative Diagnosis: Internal derangement right knee Postoperative Diagnosis: 1. Tear lateral meniscus right knee 2. Grade 2 chondromalacia medial femoral condyle right knee 3. Reactive synovitis medial, lateral and suprapatellar compartments right knee Procedure(s) Performed: 1. Arthroscopic partial lateral meniscectomy right knee 2. Arthroscopic chondroplasty medial femoral condyle right knee 3. Arthroscopic partial synovectomy medial, lateral and suprapatellar compartments right knee Anesthesia: AMERICOA, local Surgeon: Stephon Vaughn Estimated Blood Loss (ml): 8 Pathology: none sent Condition: stable Disposition: PACU Indications for Procedure: 60-year-old gentleman seen with progressive right knee pain. After having treatment options discussed, he elected to proceed with arthroscopy. Operative Findings: See description of procedure Description of Procedure: Patient was taken to the operative suite. Patient underwent a general anesthetic by the department of anesthesia. Patient was given preoperative antibiotics. The right lower extremity was placed in a well-padded arthroscopic leg clinton. The right leg was prepped and draped in the normal sterile orthopedic fashion. A lateral parapatellar and suprapatellar incision was made. Trochars were inserted. Arthroscopy was initiated. Suprapatellar pouch revealed diffuse thick reactive synovitis. The patellofemoral joint appeared to articulate congruently. There was grade 1 chondromalacia with no osteochondral tears present. The scope was guided into the medial gutter. No loose bodies or plica were identified. The scope was then guided into the medial compartment. A medial parapatellar incision was made. Trocar inserted followed by probe. The medial meniscus was probed and found to be stable. There was an area of grade 2 chondromalacia weightbearing surface medial femoral condyle with a large osteochondral flap tear present. There was thick reactive synovitis anteriorly. I performed a chondroplasty of the medial femoral condyle getting down to stable osteochondral tissue. I performed a partial synovectomy decompressing the thick reactive synovitis anteriorly. The residual osteochondral surface was stable. There was good decompression of the synovitis. Scope and probe were then guided into the intercondylar notch. Cruciates were identified, probed and found to be stable. The scope and probe were then guided into lateral compartment. There was a tear involving the posterior horn of the lateral meniscus. There were grade 1 chondromalacia changes of the lateral femoral condyle. There was thick reactive synovitis anteriorly. I performed a partial lateral meniscectomy getting down to stable meniscal tissue. I performed a partial synovectomy decompressing the reactive synovitis. The residual meniscus was stable. There was good decompression of the synovitis. The scope was in guided back into the suprapatellar compartment. I introduced a motorized shaver into the suprapatellar compartment. I debrided some piecemeal fragments of meniscus I encountered. I performed a partial synovectomy decompressing the reactive synovitis. The shaver was removed. There was good decompression of the synovitis. I took one more look on the entire knee, no residual debris. Instruments were now removed from the joint. The joint was infiltrated with .25% Marcaine. Steri-Strips were applied to the portal sites. Sterile dressings were applied. The patient was placed into a ALLEN hose. No tourniquet was utilized. The patient was awakened, transferred to a bed and taken to recovery stable satisfactory condition.
[2021-01-26 13:07] VITALS: TEMP 97.2
[2021-01-26 13:13] VITALS: RESP 16
[2021-01-26 14:14] VITALS: BP 131/81; PULSE 63
== END 2021-01-26 14:38 | disposition home or self-care (01) ==
LOC: OR 10:58
PROVIDERS: ATTEND Orthopaedic Surgery
DX: S83.281A Other tear of lateral meniscus, current injury, right knee, initial encounter (principal); M65.861 Other synovitis and tenosynovitis, right lower leg; I10 Essential (primary) hypertension; E78.5 Hyperlipidemia, unspecified; M17.11 Unilateral primary osteoarthritis, right knee; M22.41 Chondromalacia patellae, right knee; G47.33 Obstructive sleep apnea (adult) (pediatric); K21.9 Gastro-esophageal reflux disease without esophagitis; Z79.899 Other long term (current) drug therapy
CPT/HCPCS: 29881; 29876; J2250; J0330; J1100; J0690; J2405; J2001; J3010; J2704; J1170

== ENCOUNTER → 2021-01-31 | Outpatient (CLI) | payer BC | END | disposition home or self-care (01) | LOC: LABWHC1 09:40 | PROVIDERS: ATTEND Student in an Organized Health Care Education/Training Program | DX: Z01.812 Encounter for preprocedural laboratory examination (principal); Z20.822 Contact with and (suspected) exposure to COVID-19 | CPT/HCPCS: U0003; C9803; U0005 ==

== ENCOUNTER 2021-02-07 07:22 | Day surgery (SDC) | payer BC ==
[2021-02-02 10:15] VITALS: BMI 36.6
[~2021-02-07 07:22] MED LIST changes: +HEPARIN SODIUM,PORCINE/PF 5,000 UNIT/0.5 ML SYRINGE SQ PRN; -HYDROmorphone 0.5 MG/0.5 ML SYRINGE IVP PRN
[2021-02-07] MEDS ORDERED: LACTATED RINGERS 1,000 ML IV ONE ×3 (08:59→13:25)
[2021-02-07] MEDS ORDERED: fentaNYL (PF) 50 MCG/ML 2 ML AMP IVP ONE (09:29)
[2021-02-07] MEDS ORDERED: PROPOFOL 10 MG/ML 20 ML VIAL IV ONE (09:44)
[2021-02-07] MEDS ORDERED: ePHEDrine SULFATE/0.9% NACL/PF 50 MG/5 ML SYRINGE IV ONE (09:44)
[2021-02-07] MEDS ORDERED: ROCURONIUM 10 MG/ML (5 ML VIAL) IV ONE (09:44)
[2021-02-07] MEDS ORDERED: NEOSTIGMINE 1 MG/ML 10 ML VIAL ONE (09:44)
[2021-02-07] MEDS ORDERED: ROPIVACAINE 5 MG/ML 30 ML VIAL ONE (09:44)
[2021-02-07] MEDS ORDERED: SODIUM CHLORIDE 0.9% (PF) 10 ML VIAL ONE (09:44)
[2021-02-07] MEDS ORDERED: LIDOCAINE 1% INJ 10MG/ML (20 ML MDV) ONE (09:44)
[2021-02-07] MEDS ORDERED: SUCCINYLCHOLINE CHLORIDE VIAL 200 MG/10 ML VIAL IV ONE (09:44)
[2021-02-07] MEDS ORDERED: fentaNYL (PF) 50 MCG/ML 2 ML AMP ONE (09:44)
[2021-02-07] MEDS ORDERED: GLYCOPYRROLATE 0.2 MG/ML 2 ML VIAL ONE (09:44)
[2021-02-07] MEDS ORDERED: LIDOCAINE 1%-EPI 1:100,000 20 ML VIAL SQ ONE ×2 (10:09)
[2021-02-07 12:10] VITALS: TEMP 97.2
--- NOTE | 2021-02-07 12:15 | P.OP ---
Date of Procedure: 02/07/21 Preoperative Diagnosis: Incarcerated recurrent incisional hernia Postoperative Diagnosis: Same Procedure(s) Performed: Robotic-assisted repair of incarcerated incisional hernia Anesthesia: BANDAR Surgeon: Cyrus De La Torre Estimated Blood Loss (ml): 5 Condition: stable Disposition: PACU Description of Procedure: Patient is brought operative suite remained in supine position underwent general endotracheal anesthesia per Department of anesthesia prepped and draped usual sterile fashion timeout performed correct patient correct procedure correct site was verified. A 5 mm incision was made at palmers point and using a Visiport the abdomen was entered under direct visualization. The abdomen was insufflated and no injuries were noted the patient was placed left side up and under direct visualization a 12 mm port was placed in the mid abdomen on the left side. Left lower quadrant 8 mm port was placed and the 5 mm port was upsized to an 8 mm port. The robot was docked there was multiple Gabonese cheese defects along the midline with a 2 cm defect there was noted with incarcerated omentum. There was multiple adhesions which were taken down. The omentum and incarcerated hernia was reduced and the defects were closed with Stratafix suture. The ventral X mesh was then placed at previously had 3 the lock sutures circumferentially placed around the outside. This was brought up to the anterior abdominal wall through a neck incision and 8 of a Pipo-Adali suture passer. This was noted to have good coverage over all the defects with 4 cm coverage circumferentially. The mesh was sutured in place and the exo skeleton of the mesh was removed through the 12 mm port site all needles were removed through the 12 mm port site the 12 mm port site fascia was closed with an 0 Vicryl with the aid of a Pipo-Adali suture passer. The other 2 ports removed under direct visualization the abdomen was desufflated no injuries were noted. Sponge and needle count was correct skin was closed with 4-0 Monocryl suture and skin glue. Patient tolerated the procedure well no apparent complications Plan - Discharge Summary Discharge Rx Participant: Yes New Discharge Prescriptions: No Action Atorvastatin [Lipitor] 10 mg PO QAM Allergy Injections By Dr. Vidal 1 dose SQ QMONTH Verapamil HCl [Verapamil ER] 240 mg PO QAM Aspirin [Adult Low Dose Aspirin EC] 81 mg PO DAILY Discharge Medication List Atorvastatin [Lipitor] 10 mg PO QAM 12/31/18 [History] Allergy Injections By Dr. Vidal 1 dose SQ QMONTH 03/10/20 [History] Verapamil HCl [Verapamil ER] 240 mg PO QAM 11/11/20 [History] Aspirin [Adult Low Dose Aspirin EC] 81 mg PO DAILY 02/02/21 [History]
[2021-02-07] MEDS ORDERED: KETOROLAC 15 MG/ML 1 ML VIAL IVP ONE (12:17)
[2021-02-07] MEDS: HYDROmorphone 0.5 MG/0.5 ML SYRINGE IVP PRN ×4 (12:51→13:07)
--- NOTE | 2021-02-07 13:22 | P.ANPRN ---
Procedure Note - Anesthesia - Nerve Block Performed Bilateral Erector Spinae Single Time Out Performed: Yes Date of Procedure: 02/07/21 Procedure Start Time: :28 Procedure Stop Time: :35 Location of Patient: PreOp Indication: Acute Post-Operative Pain, Dx/Pain Location, Requested by Surgeon Specifically requested for management of pain by DrJeana: Cyrus De La Torre Sedation Type: Sedate with meaningful contact maintained Preparation: Sterile Prep Position: Sitting Catheter: None Needle Gauge: 21 Ultrasound used to visualize needle placement: Yes Ultrasound used to observe medication spread: Yes Injectate: 0.5% Ropivacaine (see comment for volume) Blood Aspirated: No Pain Paresthesia on Injection Noted: No Resistance on Injection: Normal Image Stored and Saved: Yes Events: Uneventful and Well Tolerated (30cc 0.5% ropivacaine used)
[2021-02-07] MEDS ORDERED: diphenhydrAMINE 50 MG/ML 1 ML VIAL IVP ONE (13:23)
[2021-02-07 13:42] VITALS: RESP 16
[2021-02-07 14:13] VITALS: BP 119/73; PULSE 76
[2021-02-07] MEDS ORDERED: HYDROcodone/APAP 5-325MG 1 EACH TAB ONE (14:19)
[2021-02-07] MEDS ORDERED: HYDROcodone/APAP 5-325MG 1 EACH TAB PO ONE (14:20)
[2021-02-07] MEDS ORDERED: ONDANSETRON 4 MG/2 ML VIAL ONE (14:47)
[2021-02-07] MEDS ORDERED: ONDANSETRON 4 MG/2 ML VIAL IVP ONE (14:51)
== END 2021-02-07 15:15 | disposition home or self-care (01) ==
LOC: OR 07:22
PROVIDERS: ATTEND Student in an Organized Health Care Education/Training Program
DX: K43.0 Incisional hernia with obstruction, without gangrene (principal); G47.33 Obstructive sleep apnea (adult) (pediatric); I10 Essential (primary) hypertension; E66.9 Obesity, unspecified; Z79.899 Other long term (current) drug therapy
CPT/HCPCS: 49657; S2900; 64999; 76942

== ENCOUNTER → 2021-02-13 | Outpatient (CLI) | payer BC ==
--- NOTE | 2021-02-13 15:17 | P.PN ---
Subjective Progress Note Date: 02/13/21 This is a follow-up visit for this 60 years old male with a chronic history of severe low back pain his diagnosed with lumbar radiculopathy and sacroiliitis, status post transforaminal epidural steroid injection and right sacroiliac joint steroid injection patient continued to have severe low back pain, the pain is constant and increases with any activity he denies any motor or sensory deficit he denies any fever or night sweats Objective - Vital Signs Vital signs: Vital Signs Temp 98.0 F 02/13/21 14:07 Pulse 82 02/13/21 14:07 Resp 16 02/13/21 14:07 BP 150/82 02/13/21 14:07 Pulse Ox 97 02/13/21 14:07 - Exam Physical Examinations : -Constitutiona : Cooperative , not in acute distress . -HEENT : nech : supple , no Lymphadenopathy , normal thyroid size . : eyes : no ptosis , no icterus, no photophobia . - neurologic : Cranial nerve II to XII intact , no focal neurological deffecit . -psychatric : alert , oriented X 3 , appropriate affect , intact judgment and insight . -Lymphatic : no Lymphadenopathy . - musculoskeltal : Lumber spine moter stegnth lower extremities ,thigh and legs 5/5 Right side , 5/5 Left side deep tendon reflexes : normal Knee Jerk , normal ankle Jerk lumber facet Loading Test =positive Right , positive Left Range of motion of the lumbar spine Flexion 30 degrees, extension 10 degrees strait leg raising test = positive at 30 degree Fabere test= positive Right , and positive LT . Sever tenderness over the Sacroiliac joint on the Right , and Left sides Gaenslen test= positive right . Seated flexion test= positive right . Distraction test= positive right Sacroiliac compression test= positive right Assessment and Plan Plan: Assessment and plan=1-lumbar radiculopathy. 2-sacroiliitis. Patient continued to have severe low back pain after her second transforaminal epidural steroid injection and after right-sided sacroiliac joint steroid injection, patient will follow up with Dr. Agarwal's in for evaluation and he will follow up in the pain clinic when necessary Time with Patient: Less than 30
== END | disposition home or self-care (01) ==
CPT/HCPCS: 99211

== ENCOUNTER 2021-07-04 10:39 | Day surgery (SDC) | payer BC ==
[2021-07-03 09:05] VITALS: BMI 36.0
[~2021-07-04 10:39] MED LIST changes: -DEXAMETHASONE SOD PHOSPHATE 4 MG/ML 1 ML VIAL IV ONE; -HEPARIN SODIUM,PORCINE/PF 5,000 UNIT/0.5 ML SYRINGE SQ PRN; -MIDAZOLAM 2 MG/2 ML VIAL IV PRN; -ONDANSETRON 4 MG/2 ML VIAL IVP ONE
[2021-07-04 11:21] VITALS: TEMP 98.2
[2021-07-04] MEDS ORDERED: fentaNYL (PF) 50 MCG/ML 2 ML AMP ONE (12:21)
[2021-07-04] MEDS ORDERED: MIDAZOLAM 2 MG/2 ML VIAL ONE (12:21)
[2021-07-04] MEDS ORDERED: methylPREDNISolone ACETATE 40 MG/ML 1 ML VIAL ONE (12:21)
[2021-07-04] MEDS ORDERED: IOPAMIDOL M200 10 ML VIAL ONE (12:21)
--- NOTE | 2021-07-04 12:39 | P.PCN ---
Date of Procedure: 07/04/21 Procedure(s) Performed: PREOPERATIVE DIAGNOSIS: 1- Lumbar Degenerative Disc Diseases 2-Lumbar spondylosis with Facet arthropathy without myelopathy POSTOPERATIVE DIAGNOSIS: Same as preop diagnosis. PROCEDURE 1. Lumbar epidural steroid injection under fluoroscopic guidance at the L4-5 level. (Fluoroscopy imaging was available in radiology department) 2. Lumbar epidurogram. ANESTHESIA: Local with 1% lidocaine 3 ml and , moderate sedation with intravenous Versed 1 mg ,and fentanyle 50 Mcg EBL: Minimal PROCEDURE INDICATION: The patient with low back pain and radiculitis symptoms unresponsive to conservative treatment. Fluoroscopy was used to optimize visualization of the needle placement and to maximize safety. PROCEDURE DESCRIPTION / TECHNIQUE: The patient was seen and identified in the preoperative area. Risks, benefits, complications including but not limited to infections ,bleeding ,allergic reaction to the medications ,nerve damage and not complete pain releife , and alternatives were discussed with the patient. The patient agreed to proceed with the procedure and signed the consent. IV was started, and vital signs were stable. Patient was taken to the OR and time out was completed. The patient was placed in the prone position on procedure table and a pillow was placed under the abdomen to reduce lumbar lordosis. The lumbosacral area was prepped and draped in the usual sterile fashion.ere closely monitored during the procedure. Cons cious sedation was used during the procedure to decrease patients anxiety. Vital signs was monitered during the entire procedure. Using anterior-posterior fluoroscopy, the L4-5 interlaminar space was identified and the skin over this site was marked and then infiltrated with 1% lidocaine subcutaneously. Subsequently, a 20-gauge Tuohy epidural needle was inserted and advanced toward the epidural space using the ``Loss of resistance technique and guided by AP and lateral fluoroscopy. The correct needle position in the epidural space was verified with the injection of 2 mL of the water soluble contrast dye Isovue 200 contrast and observing an excellent epidurogram with the epidural spread of the dye, after negative aspiration for blood and CSF and in the absence of paresthesias. Again after negative aspiration, a 6 ml mixture containing 80 mg of Depo-medrol , and 2 ml of preservative free Normal Saline, and 2 ml of preservative free lidocaine 1% solution was injected and a washout of epidurogram was seen. Needle was withdrawn intact, skin was cleansed, and bandages were applied. COMPLICATIONS: None DISPOSITION / PLANS: The patient was placed in a supine position and transferred to the recovery area in a stable condition for observation. There was no evidence of lower extremity motor or sensory deficit after the procedure. Patient was discharged from the recovery room after meeting discharge criteria. Home discharge instructions were given to the patient by the staff. The patient was reexamined prior to discharge. The patient will schedule a follow up in the clinic in 2-4 weeks.
[2021-07-04] MEDS ORDERED: LACTATED RINGERS 1,000 ML IV ONE (12:40)
[2021-07-04] MEDS ORDERED: IV FLUID CONTINUATION 800 ML IV ONE (12:40)
--- NOTE | 2021-07-04 12:51 | FL ---
EXAMINATION TYPE: FL guided pain mgmt statistic DATE OF EXAM: 07/04/2021 CLINICAL HISTORY: Low back pain. TECHNIQUE: Fluoroscopy. COMPARISON: None. FINDINGS: Fluoroscopic guidance was provided during pain relief procedure performed by Dr. Hills . A total of seconds of fluoroscopic time was utilized during the procedure and 1 spot images are ac quired. Single image acquired shows needle localization at roughly L4-L5 level. IMPRESSION: As Above.
[2021-07-04 12:59] VITALS: BP 144/84; PULSE 80; RESP 18
== END 2021-07-04 13:10 | disposition home or self-care (01) ==
LOC: ORPAIN 10:39
PROVIDERS: ATTEND Specialist
DX: M51.36 Other intervertebral disc degeneration, lumbar region (principal); M47.816 Spondylosis without myelopathy or radiculopathy, lumbar region
CPT/HCPCS: 62323; J2250; J1030; J3010; Q9966; 99152

== ENCOUNTER → 2021-07-18 | Outpatient (CLI) | payer BC ==
--- NOTE | 2021-07-18 12:00 | CT ---
EXAMINATION TYPE: CT abdomen wo/w con DATE OF EXAM: 07/18/2021 COMPARISON: NONE HISTORY: 60-year-old male D41.01, renal mass TECHNIQUE: Contiguous axial scanning of the abdomen before and after administration of 100 ml Isovue 300 IV contrast. Delayed images through the kidneys and coronal/sagittal reconstructions performed. CT DLP: 2846.5 mGycm Automated exposure control for dose reduction was used. FINDINGS: The heart is upper limits of normal in size without pericardial effusion. Mild LAD coronary artery ca lcifications are present. A large caliber to the main right pulmonary artery at 3.0 cm may reflect un derlying pulmonary artery hypertension. Strandy atelectasis in the visualized lower lungs. No pleural effusion. Tiny hiatal hernia. Liver mildly enlarged at 18.0 cm. No focal lesion. Portal venous system is patent. No biliary ductal dilatation. Gallbladder, adrenal glands, and pancreas within normal limits. Mildly enlarged 1.3 cm peripancreatic lymph node, axial image 32 should be reassessed at short interv al follow-up. Vague area of hypervascularity measuring 1.2 cm within the lateral aspect of the body of the spleen, series 5 axial image 29, probably a small hemangioma. 8 mm cortical hypodensity lateral mid to lower pole left kidney and 1 cm at the right lower pole, too small for accurate CT characterization, likely a small cortical cyst. There is a 1.5 cm cortical hypodensity lateral mid pole right kidney suggesting a benign cyst. A second cortical hypodensity lateral mid to lower pole of the right kidney measures 1.4 cm. Attenuat ion around 40 Hounsfield units. This does not significantly changed on the other phases of imaging. A complicated cyst is suspected. Stability can be confirmed on a 6 month follow-up CT. Symmetric uptake and excretion of contrast from the kidneys. A few scattered nonenlarged and some borderline-sized mesenteric lymph nodes in the left side of the abdomen measuring up to 9 mm, axial image 38. Post surgical change along the anterior abdominal wall at the periumbilical region. Suspect areas of fat necrosis. There is also a rounded fluid collection measuring 2.9 x 2.9 x 2.5 cm in the right shreya umbilical subcutaneous adipose layer. This could represent a small abscess or fluid filled small shreya umbilical hernia. No dilated small bowel, free fluid, or free air. Mild stool burden. Mild left-sided colonic diverticu losis. No pericolic inflammatory change. Bones: Facet arthropathy lower lumbar spine. Mild to moderate degenerative disc disease thoracolumbar junction. IMPRESSION: 1. COUPLE SMALL RENAL CORTICAL HYPODENSITIES SUGGESTIVE OF CYSTS ON EITHER SIDE MEASURING UP TO 1.5 C M LATERAL MIDPOLE RIGHT KIDNEY. 2. AN INDETERMINATE 1.4 CM CORTICAL HYPODENSITY LATERAL MID TO LOWER POLE RIGHT KIDNEY. A COMPLICATED PROTEINACEOUS/HEMORRHAGIC CYST IS SUSPECTED. 6 MONTH FOLLOW-UP CT TO REASSESS. 3. MILDLY ENLARGED 1.3 SEVERE PERIPANCREATIC LYMPH NODE PROBABLY REACTIVE SHOULD ALSO BE REASSESSED A T FOLLOW-UP. SOME SCATTERED BORDERLINE SIZED MESENTERIC LYMPH NODES IN THE LEFT SIDE OF THE ABDOMEN M EASURING UP TO 9 MM CAN ALSO BE REASSESSED AT FOLLOW-UP. 4. POSTSURGICAL CHANGE ALONG THE ANTERIOR ABDOMINAL WALL AND PERIUMBILICAL REGION. SUSPECT AREAS OF F AT NECROSIS. THERE IS ALSO A 2.9 CM RIGHT PERIUMBILICAL FLUID COLLECTION. CORRELATE TO ETIOLOGY YUAN CH A POSTOPERATIVE SEROMA, ABSCESS, OR FLUID FILLED ABDOMINAL WALL HERNIA SAC.
== END | disposition home or self-care (01) ==
LOC: RADCTMAIN 08:47
PROVIDERS: ATTEND Urology
DX: D41.01 Neoplasm of uncertain behavior of right kidney (principal)
CPT/HCPCS: 74170; Q9967

== ENCOUNTER → 2021-07-24 | Outpatient (CLI) | payer BC ==
[2021-07-24 13:32] VITALS: BP 170/87; PULSE 74; RESP 18; TEMP 97.8
--- NOTE | 2021-07-24 13:52 | P.PN ---
Subjective Progress Note Date: 07/24/21 His follow-up visit for this 60 years old male with a chronic history of severe low back pain, he is taking assessment lumbar degenerative disc disease and lumbar underwith lumbar facet arthropathy, and right sacroiliitis, he physically we have done a right-sided transforaminal epidural steroid injections 2 , patient had no benefit from it, and later on we did right sacroiliac joint steroid injections x2 , he reported that he had no benefit from it, she currently complaining of severe low back pain it's bosentan that is more prominent on the right side, and the pain radiated to the posterior lateral aspect of his right lower extremity, pain is constant and increased with activity, he denies any motor or sensory deficit he denies any fever or night sweats, denies any change in the bowel movement or urination Objective - Vital Signs Vital signs: Vital Signs Temp 97.8 F 07/24/21 13:25 Pulse 74 07/24/21 13:25 Resp 18 07/24/21 13:25 BP 170/87 07/24/21 13:25 Pulse Ox - Exam Physical Examinations : -Constitutiona : Cooperative , not in acute distress . -HEENT : nech : supple , no Lymphadenopathy , normal thyroid size . : eyes : no ptosis , no icterus, no photophobia . - neurologic : Cranial nerve II to XII intact , no focal neurological deffecit . -psychatric : alert , oriented X 3 , appropriate affect , intact judgment and insight . -Lymphatic : no Lymphadenopathy . - musculoskeltal : Lumber spine moter stegnth lower extremities ,thigh and legs 5/5 Right side , 5/5 Left side deep tendon reflexes : normal Knee Jerk , normal ankle Jerk lumber facet Loading Test =positive Right , positive Left Range of motion of the lumbar spine Flexion 30 degrees, extension 10 degrees strait leg raising test = positive at 30 degree on the right side Fabere test= positive Right . Sever tenderness over the Sacroiliac joint on the Right. Gaenslen test= positive right. Seated flexion test= positive right . Distraction test= positive bilaterally Sacroiliac compression test= positive right. Right of the lumbar spine multilevel lumbar degenerative disc disease and multilevel lumbar facet arthropathy Assessment and Plan Plan: Assessment and plan=1-Lumbar spondylosis with lumbar facet arthropathy without myelopathy. 2-Lumbar degenerative disc disease. 3-right sacroiliitis. he had no benefit from transforaminal epidural steroid injection The patient had no benefit from right sacroiliac joint steroid injection. he could benefit from diagnostic medial branch block lumbar area at L4 5 and L5-S1 x2 and if it's possible proceed with RFA. Time with Patient: Less than 30
== END | disposition home or self-care (01) ==
LOC: PNWHC3 12:26
PROVIDERS: ATTEND Specialist
DX: M47.896 Other spondylosis, lumbar region (principal); M51.36 Other intervertebral disc degeneration, lumbar region; M46.1 Sacroiliitis, not elsewhere classified
CPT/HCPCS: 99211

== ENCOUNTER 2021-08-29 11:30 | Day surgery (SDC) | payer BC ==
[2021-08-25 14:32] VITALS: BMI 36.1
[2021-08-29 12:50] VITALS: TEMP 98
[2021-08-29] MEDS ORDERED: LACTATED RINGERS 1,000 ML IV ONE (12:56)
[2021-08-29] MEDS ORDERED: TRIAMCINOLONE ACETONIDE 40 MG/ML 1 ML VIAL ONE (13:28)
[2021-08-29] MEDS ORDERED: MIDAZOLAM 2 MG/2 ML VIAL ONE (13:28)
[2021-08-29] MEDS ORDERED: ROPIVACAINE 5MG/ML 20ML VIAL ONE (13:28)
[2021-08-29] MEDS ORDERED: fentaNYL (PF) 50 MCG/ML 2 ML AMP ONE (13:28)
[2021-08-29] MEDS ORDERED: LACTATED RINGERS 1,000 ML IV SCH (13:45)
--- NOTE | 2021-08-29 13:45 | P.PCN ---
Date of Procedure: 08/29/21 Description of Procedure: Pre- and Post-operative Diagnosis: Lumbar facet arthropathy, and lumbar spondylosis without myelopathy. Procedure: #1 Diagnostic Medial Branch Block at bilateral Lumbar 4/5 and #1 diagnostic dorsal ramus block at Lumbar 5/ sacral ala levels (total 4 levels) Surgeon: Shabbir Gaines Anesthesia: Local: 1% Lidocaine, IV sedation : Versed 2 mg and fentanyl 100 g. Complications: None EBL: None Specimen removed: None Fluoroscopic image: Saved to patient electronic medical records. Indications for Procedure: The patient is well known to pain clinic for his chronic low back pain management. The lumbar facet loading test was positive with a clinical diagnosis of lumbar facet arthropathy. Failed with conservative therapy. Came here for interventional help for better pain relief. Procedure and Findings: The patient was seen and examined. The written informed consent was obtained after explaining the risks, benefits and alternatives of the procedure to the patient. The patient was brought to the procedure room and was placed in the prone position on the operating table table. A pillow was placed under the abdomen to reduce lumbar lordosis. Standard anesthesia monitoring was done through out the procedure. The skin preparation was done with ChloraPrep, and draping was done in usual sterile fashion. Sterile technique was observed throughout the procedure. Under fluoroscopic guidance, right the Lumbar 4, 5 and Sacral ala levels were identified in the AP view. For lumbar L4, and L5 levels the targeting area of superior articular process, and close to the most medial and superior aspect of transverse process identified, marked. 1ml of 1% Lidocaine was used with a 25 gauge needle to achieve adequate local anesthesia of the skin and subcutaneous tissue at each level. A 22 gauge 3.5 inch spinal needle was placed and advanced targeting area which was close to the most medial and superior aspect of the transverse process. For Lumbar 5/ sacral ala level, fluoroscope was used in the anteroposterior view, and the needle tip was placed at the superior and most medial part of sacral ala close to the superior articular process. A bony contact was obtained and needle tip position was confirmed at anteroposterior view. No paresthesia was noted. A negative aspiration was confirmed. 1 ml solution per level was injected, the block solution containing 5 ml of 0.5% rop ivacaine preservative-free solution mixed with 40 MG of Kenalog. The needles were removed intact. Entire procedure repeated on the left side. Lumbar area was cleaned and bandages were applied. Disposition : The patient tolerated the procedure very well. The patient was transferred to the recovery room and remained stable until discharged home. The patient was given detailed discharge instructions for infection, bleeding, and increased pain at the injection site, and was advised to seek immediate medical attention should significant side effects develop. The patient will be scheduled with Pain Clinic within 4 weeks for repeat procedure if it's helpful.
[2021-08-29] MEDS ORDERED: IV FLUID CONTINUATION 1,000 ML IV ONE (13:48)
[2021-08-29 13:56] VITALS: RESP 14
--- NOTE | 2021-08-29 14:02 | FL ---
EXAMINATION TYPE: FL guided pain mgmt statistic DATE OF EXAM: 08/29/2021 CLINICAL HISTORY: Low back pain. TECHNIQUE: Fluoroscopy. COMPARISON: None. FINDINGS: Fluoroscopic guidance was provided during pain relief procedure performed by Dr. Gray . A total of 6 seconds of fluoroscopic time was utilized during the procedure and two spot images are acquired. Images acquired shows needle localization at several levels in the bilateral lower lumbar spine. IMPRESSION: As Above.
[2021-08-29 14:16] VITALS: BP 120/74; PULSE 88
== END 2021-08-29 14:20 | disposition home or self-care (01) ==
LOC: ORPAIN 11:30
DX: M47.816 Spondylosis without myelopathy or radiculopathy, lumbar region (principal)
CPT/HCPCS: 64493; 64494; J2250; J3301; J3010; J2795; 99152

== ENCOUNTER → 2021-09-14 | Outpatient (CLI) | payer BC ==
--- NOTE | 2021-09-14 11:45 | MR ---
EXAMINATION TYPE: MR knee RT wo con DATE OF EXAM: 09/14/2021 COMPARISON: Prior right knee MRI 12/07/2020, plain film 07/14/2021 HISTORY: Right knee pain and pain behind knee for 3 months. History of surgery. TECHNIQUE: Multiplanar, multisequence imaging of the right knee is performed without IV contrast. FINDINGS: MEDIAL MENISCUS: Anterior and posterior horns are intact without tear. LATERAL MENISCUS: Posterior horn of the lateral meniscus appears attenuated as compared to prior exam , root anchor may be at least partially disrupted, some linear increased signal extends the articular surface on sagittal image #30 CRUCIATE LIGAMENTS: The anterior and posterior cruciate ligaments are intact and unremarkable. COLLATERAL LIGAMENTS: The medial collateral ligament and lateral collateral ligament complex are inta ct and unremarkable. EXTENSOR MECHANISM: Visualized quadriceps and patellar tendons are intact. EFFUSION: No significant suprapatellar joint effusion. POPLITEAL CYST: Semimembranosus gastrocnemius cyst is again seen, there is some internal septations, somewhat multilocular appearance, overall dimensions are approximately 6.7 cm in cephalad to caudal dimension which is increased in size compared to prior exam, transverse dimension is greatest 3.2 cm, AP dimension approximately 2 cm.. 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 There is grade II I chondromalacia present at the medial femoral condyle, coronal image #25 lateral aspect, some grade 2 to grade III chondromalacia present along the proximal tibia lateral compartment BONE MARROW SIGNAL: Some mild probable geode formation present in the subchondral aspect of the poste rior patella, similar to prior exam OTHER: Subcutaneous edema changes are present especially along the prepatellar tendon region IMPRESSION: Mojica's cyst has increased in size as described. Findings consistent with tear the posterior horn the lateral meniscus. Osteoarthritis as described. Additional findings above.
== END | disposition home or self-care (01) ==
LOC: RADMRIMAIN 09:22
PROVIDERS: ATTEND Orthopaedic Surgery
DX: M71.21 Synovial cyst of popliteal space [Baker], right knee (principal); M17.11 Unilateral primary osteoarthritis, right knee

== ENCOUNTER → 2021-09-27 | Outpatient (CLI) | payer BC ==
[2021-09-27 14:17] VITALS: BP 164/97; PULSE 72; RESP 18
--- NOTE | 2021-09-27 14:38 | P.PN ---
Subjective Progress Note Date: 09/27/21 Principal diagnosis: A 60 yr old male with a history of severe and chronic low back pain secondary to lumbar degenerative disc diseases and lumbar spondylosis with facet arthropathy presents today for evaluation of BL MBB of L4-L5/ L5-S1 completed on 08/29/21. Pain level is currently a 2/ /10 which is down from a 7/10. He admits to >75% pain relief. Only provokes pain with excessive bending. Pain is dull/ achy in the lower back but sometimes shoots towards the right lower extremity. Alleviated with medications, voltaren gel, physical therapy and chiropractic treatments 2 years, massage, stretches, sitting and repositioning. Interventional pain procedures completed include MBBs of BL L4-L5/ L5-S1 Patient denies any side effects of the medication(s), denies excessive drowsiness or sleepiness, denies suicidal ideation and reports that the current pain medication is helping to control the pain and improve activities of daily living. Patient denies any motor or sensory deficits. Patient denies any fever or night sweats, denies any change in the bowel movements or urination. Physical Examination: -Constitutional: Cooperative. Not in acute distress . -HEENT: Neck is supple. No lymphadenopathy. No thyromegaly. Normal thyroid size. Eyes: No ptosis , no icterus, no photophobia. ENT: No auditory deficits. Normal oropharynx. No Thrush. - Respiratory: Chest clear to auscultations bilaterally. No wheezing. No rhonchi. - Cardiovascular: Regular rate and rhythm. S1 / S2 , no S3 , no S4. - Gastrointestinal: Abdomen soft no tenderness. Bowel sounds positive in all four quadrants. No organomegaly. - Genitourinary: Deferred. - Neurologic: Cranial nerve II to XII intact. No focal neurological deficits. - Psychatric: Alert & oriented x 3. Matching mood & appropriate affect. Judgment and insight intact. - Lymphatic: No Lymphadenopathy. - Musculoskeletal: Cervical spine: Muscle bulk/ tone/ strength in the bilateral upper extremities normal. Facet loading test cervical area positive. Lumbar spine: Motor bulk/ tone/ strength lower extremities , thigh and legs : 5/5 Deep tendon reflexes : Normal Knee Jerk. Normal Ankle Jerk . Lumbar Facet Loading Test positive of BL L4-S1 Straight Leg Raise: positive at 30 degree right side/ left side Neisha test: positive right side / left side Gaenslen's test positive bilaterally Range of motion: Flexion of the lumbar spine 60 degrees Range of motion: Extension of the lumbar spine <20 degrees Severe tenderness over the Sacroiliac joint: right side / left side Assessment and plan: Chronic low back pain secondary to lumbar degenerative disc disease , lumbar spondylosis with facet arthropathy without myelopathy Recommendation of BL MBB of L4-L4/ S5-S1 Discussed may need additional RFA for adequate pain relief All patient questions answered MAPS reviewed and it was appropriate. I have spent 31 minutes on patient care today. Dr Hills was available by phone for the evaluation of this patient. The time was used to review the medical records including relevant urine studies and Prescription history (MAPs), review of the available imaging, evaluation and examination of the patient, coordination of care with the medical staff and if applicable referring physicians, as well as creation of the medical record Objective - Vital Signs Vital signs: Vital Signs Temp Pulse 72 09/27/21 14:01 Resp 18 09/27/21 14:01 BP 164/97 09/27/21 14:01 Pulse Ox 100 09/27/21 14:01 PQRS Measure Charge Sheet Mode of Arrival: Ambulatory - Pain Location Right Lower Back Non-Pharmacological Interventions: Chiropractic Treatment, Home Exercise, Inactivity, Massage, Physical Therapy, Position/Reposition, Sitting, Stretching Pharmacological Interventions: PRN Medication PQRS Narrative: Smoking Status Never smoker Blood Pressure 164/97 Pain Intensity [Right Lower 2 Back] Scale Used Numeric (1 - 10) Hx Alcohol Use (MH) Yes Home Medications: Ambulatory Orders Atorvastatin [Lipitor] 10 mg PO QA 12/31/[address] Vidal 1 dose SQ QMONTH 03/10/20 Verapamil HCl [Verapamil ER] 240 mg PO QAM 11/11/20 Liraglutide [Saxenda] 1.2 mg SQ DAILY 09/22/21
== END | disposition home or self-care (01) ==
LOC: PNWHC3 13:00
PROVIDERS: ATTEND Physician Assistant Medical
DX: M47.896 Other spondylosis, lumbar region (principal); M51.36 Other intervertebral disc degeneration, lumbar region
CPT/HCPCS: 99211

== ENCOUNTER → 2021-10-10 | Outpatient (CLI) | payer BC ==
[2021-10-10 14:56] LABS: Basophils # (A) 0.03 X 10*3/uL (0.00-0.10); Basophils % (A) 0.5 %; Eosinophils # (A) 0.17 X 10*3/uL (0.04-0.35); Eosinophils % (A) 2.8 %; HCT 45.1 % (39.6-50.0); HGB 14.6 g/dL (13.0-17.0); Lymphocytes # (A) 1.47 X 10*3/uL (0.90-5.00); Lymphocytes % (A) 24.3 %; MCH 27.9 pg (27.0-32.0); MCHC 32.4 g/dL (32.0-37.0); MCV 86.2 fL (80.0-97.0); Mean Platelet Volume 9.2 fL (9.5-12.2); Monocytes # (A) 0.64 X 10*3/uL (0.20-1.00); Monocytes % (A) 10.6 %; Neutrophils # (A) 3.73 X 10*3/uL (1.80-7.70); Neutrophils % (A) 61.5 %; Platelet Count 346 X 10*3/uL (140-440); RBC 5.23 X 10*6/uL (4.40-5.60); RDW 13.5 % (11.5-14.5); WBC 6.06 X 10*3/uL (4.50-10.00)
[2021-10-10 15:12] LABS: Anion Gap 11.3 mmol/L (10.00-18.00); Carbon Dioxide 23.3 mmol/L (20.0-27.5); Potassium 4.2 mmol/L (3.5-5.5)
== END | disposition home or self-care (01) ==
LOC: LABPAT 10:40
PROVIDERS: ATTEND Orthopaedic Surgery
DX: Z01.812 Encounter for preprocedural laboratory examination (principal); Z01.810 Encounter for preprocedural cardiovascular examination; M23.91 Unspecified internal derangement of right knee
CPT/HCPCS: 80051; 85025

== ENCOUNTER 2021-11-02 10:19 | Day surgery (SDC) | payer BC ==
[2021-11-01 08:54] VITALS: BMI 34.9
--- NOTE | 2021-11-01 17:11 | HP ---
HISTORY AND PHYSICAL DATE OF SURGERY: 11/02/2021 Quinton Merida is a 60-year-old patient seen with progressive right knee pain. We discussed options for treatment. He elected to proceed with right knee arthroscopy. Consent was obtained. PAST MEDICAL HISTORY: Hyperlipidemia, hypertension. PAST SURGICAL HISTORY: Herniorrhaphy, sinus surgery, spinal surgery, left knee arthroscopy. DAILY MEDICATIONS: Verapamil, atorvastatin, ibuprofen. ALLERGIES: NONE. SOCIAL HISTORY: He denies tobacco use. PHYSICAL EVALUATION OF THE RIGHT KNEE: His range of motion is zero to 130. Mild effusion. Tenderness along the medial and lateral joint lines. Positive medial Jl's. Positive lateral Jl's. Ligaments stable. Hip rotation without pain. Distal neurovascular exam intact. Right knee radiographs revealed mild osteoarthritic changes. MRI knee revealed a lateral meniscal tear along with a Mojica cyst. IMPRESSION: 1. Internal derangement of right knee with lateral meniscal tear. 2. Hypertension. 3. Hyperlipidemia. PLAN: Right knee arthroscopy with partial meniscectomy and debridement. MMODL / IJN: [id number] /
[~2021-11-02 10:19] MED LIST changes: +DEXAMETHASONE SOD PHOSPHATE 4 MG/ML 1 ML VIAL IV ONE; +HYDROmorphone 0.5 MG/0.5 ML SYRINGE IVP PRN; -LIDOCAINE 1% (10MG/ML) FOR IV START INTRADERMA PRN; +ONDANSETRON 4 MG/2 ML VIAL IVP ONE
[2021-11-02] MEDS ORDERED: LIDOCAINE 1% (10MG/ML) FOR IV START INTRADERMA ONE (10:50)
[2021-11-02] MEDS ORDERED: NEOSTIGMINE 1 MG/ML 10 ML VIAL ONE (12:03)
[2021-11-02] MEDS ORDERED: LIDOCAINE 1% INJ 10MG/ML (20 ML MDV) ONE (12:03)
[2021-11-02] MEDS ORDERED: GLYCOPYRROLATE 0.2 MG/ML 2 ML VIAL ONE (12:03)
[2021-11-02] MEDS ORDERED: ROCURONIUM 10 MG/ML (5 ML VIAL) IV ONE (12:03)
[2021-11-02] MEDS ORDERED: fentaNYL (PF) 50 MCG/ML 2 ML AMP ONE (12:03)
[2021-11-02] MEDS ORDERED: MIDAZOLAM 2 MG/2 ML VIAL ONE (12:03)
[2021-11-02] MEDS ORDERED: SUCCINYLCHOLINE CHLORIDE 100 MG/5 ML SYR IV ONE (12:03)
[2021-11-02] MEDS ORDERED: PROPOFOL 10 MG/ML 20 ML VIAL IV ONE (12:03)
[2021-11-02] MEDS ORDERED: BUPIVACAINE (PF) 0.25% 30 ML VIAL SQ ONE ×2 (12:28→12:35)
--- NOTE | 2021-11-02 12:52 | P.OP ---
Date of Procedure: 11/02/21 Preoperative Diagnosis: Internal derangement right knee Postoperative Diagnosis: 1. Tear medial meniscus right knee 2. Grade 2/3 chondromalacia medial femoral condyle right knee 3. Reactive synovitis medial, lateral and suprapatellar compartments right knee Procedure(s) Performed: 1. Arthroscopic partial medial meniscectomy right knee 2. Arthroscopic partial synovectomy medial, lateral and suprapatellar compartments right knee 3. Arthroscopic chondroplasty medial femoral condyle right knee Anesthesia: [facility], local Surgeon: Stephon Vaughn Estimated Blood Loss (ml): 8 Pathology: none sent Condition: stable Disposition: PACU Indications for Procedure: 60-year-old patient seen with progressive right knee pain. After treatment options were discussed, he elected to proceed with arthroscopy. Operative Findings: See description of procedure Description of Procedure: Patient was taken to the operative suite. Patient underwent a general anesthetic by the department of anesthesia. Patient was given preoperative antibiotics. The right lower extremity was placed in a well-padded arthroscopic leg clinton. The right leg was prepped and draped in the normal sterile orthopedic fashion. A lateral parapatellar and suprapatellar incision was made. Trochars were inserted. Arthroscopy was initiated. Suprapatellar pouch revealed diffuse thick reactive synovitis. The patellofemoral joint appeared to articulate congruently. There with grade 2/3 chondromalacia of the patella with no significant osteochondral tears present. The scope was guided into the medial gutter. No loose bodies or plica were identified. The scope was then guided into the medial compartment. A medial parapatellar incision was made. Trocar inserted followed by probe. There was a radial tear posterior horn medial meniscus. There were grade 2/3 chondromalacia changes of the medial femoral condyle with some osteochondral flap tears along the periphery. There was thick reactive synovitis anteriorly. I performed a partial medial meniscectomy getting down to stable meniscal tissue. I performed a chondroplasty of the medial femoral condyle getting down to stable osteochondral tissue. I performed a partial synovectomy decompressing the thick reactive synovitis. The residual meniscus was stable. The residual osteochondral surface of the medial femoral condyle was stable. There was good decompression of the synovitis. Scope and probe were then guided into the intercondylar notch. Cruciates were identified, probed and found to be stable. The scope and probe were then guided into lateral compartment. The lateral meniscus was probed and found to be stable. There were grade 2 chondromalacia changes diffusely in the lateral compartment with no osteochondral flap tears present. There was some thick reactive synovitis anteriorly. I introduced a motorized shaver and I performed a partial synovectomy. Shaver was removed. There was good decompression of the synovitis. The scope was in guided back into the suprapatellar compartment. I introduced a motorized shaver into the suprapatellar compartment. I debrided some piecemeal fragments of meniscus I encountered. I performed a partial synovectomy. Shaver was removed. There was good decompression of the synovitis. I now took one more look around the entire knee, no residual debris. Instruments were now removed from the joint. The joint was infiltrated with .25% Marcaine. Steri-Strips were applied to the portal sites. Sterile dressings were applied. The patient was placed into a ALLEN hose. No tourniquet was utilized. The patient was awakened, transferred to a bed and taken to recovery stable satisfactory condition.
[2021-11-02] MEDS ORDERED: LACTATED RINGERS 1,000 ML IV ONE (12:53)
[2021-11-02 13:05] VITALS: TEMP 96.9
[2021-11-02 13:18] VITALS: RESP 18
[2021-11-02 13:57] VITALS: BP 122/79; PULSE 78
== END 2021-11-02 14:25 | disposition home or self-care (01) ==
LOC: OR 10:19
PROVIDERS: ATTEND Orthopaedic Surgery
DX: M23.91 Unspecified internal derangement of right knee (principal)
CPT/HCPCS: 29881; 29888; J2250; J1100; J2710; J0690; J2405; J2001; J3010; J0330; J2704

== ENCOUNTER → 2021-11-08 | Outpatient (CLI) | payer BC ==
--- NOTE | 2021-11-08 14:10 | P.PN ---
Subjective Progress Note Date: 11/08/21 Principal diagnosis: A 60 yr old male with a history of severe and chronic low back pain secondary to lumbar degenerative disc diseases and lumbar spondylosis with facet arthropathy presents today for evaluation status post facet block of the medial branches L4- L5, L5-S1 #2. Patient states he experienced 90% pain relief with the procedure. Pain level is currently at 7 out of 10 in intensity but escalates as high as 1 out of 10 in intensity with activity throughout the day by evening. Pain is dull/ achy in the lower lumbar spine with radiating shooting pain left and right of midline to the paraspinal muscles bilaterally. Pain is provoked by bending, twisting and lifting. Pain is alleviated with Voltaren gel OTC, injections, ice, physical therapy in the past, daily home stretching regimen, massage on a monthly basis and rest. Interventional pain procedures completed include facet blocks of the medial branches L4-L5, L5-S1 #2 Patient is currently on Voltaren gel OTC Patient denies any side effects of the medication(s), denies excessive drowsiness or sleepiness, denies suicidal ideation and reports that the current pain medication is helping to control the pain and improve activities of daily living. Patient denies any motor or sensory deficits. Patient denies any fever or night sweats, denies any change in the bowel movements or urination. Physical Examination: -Constitutional: Cooperative. Not in acute distress . -HEENT: Neck is supple. No lymphadenopathy. No thyromegaly. Normal thyroid size. Eyes: No ptosis , no icterus, no photophobia. ENT: No auditory deficits. Normal oropharynx. No Thrush. - Respiratory: Chest clear to auscultations bilaterally. No wheezing. No rhonchi. - Cardiovascular: Regular rate and rhythm. S1 / S2 , no S3 , no S4. - Gastrointestinal: Abdomen soft no tenderness. Bowel sounds positive in all four quadrants. No organomegaly. - Genitourinary: Deferred. - Neurologic: Cranial nerve II to XII intact. No focal neurological deficits. - Psychatric: Alert & oriented x 3. Matching mood & appropriate affect. Judgment and insight intact. - Lymphatic: No Lymphadenopathy. - Musculoskeletal: Cervical spine: Muscle bulk/ tone/ strength in the bilateral upper extremities normal. Facet loading test cervical area positive. Lumbar spine: Motor bulk/ tone/ strength lower extremities , thigh and legs : 5/5 Deep tendon reflexes : Normal Knee Jerk. Normal Ankle Jerk . Vertebral body tenderness to palpation over Lumbar Facet Loading Test positive over deep palpation of L4-L5 and L5-S1 Straight Leg Raise: positive at 30 degrees right side/ left side Gaenslen's Test positive Sacral spine : Severe tenderness over the Sacroiliac joint: right side / left side Range of motion: Flexion of the lumbar spine <60 degrees Range of motion: Extension of the lumbar spine <20 degrees Gaenslen's Test positive Neisha test: positive right side / left side Assessment and plan: Chronic low back pain secondary to lumbar degenerative disc disease , lumbar spondylosis with facet arthropathy without myelopathy Recommendation of bilateral RFA of L4-L5, L5-S1 Risks, benefits of procedure discussed and patient verbalized understanding. Denies anticoagulants use. Denies medical history of diabetes mellitus. All patient questions answered MAPS reviewed and it was appropriate. I have spent 31 minutes on patient care today. Dr Hills was available by phone for the evaluation of this patient. The time was used to review the medical records including relevant urine studies and Prescription history (MAPs), review of the available imaging, evaluation and examination of the patient, coordination of care with the medical staff and if applicable referring physicians, as well as creation of the medical record PQRS Measure Charge Sheet PQRS Narrative: Smoking Status Never smoker Hx Alcohol Use (MH) Yes Home Medications: Ambulatory Orders Atorvastatin [Lipitor] 10 mg PO QAM 12/31/[address] Vidal 1 dose SQ QMONTH 03/10/20 Verapamil HCl [Verapamil ER] 240 mg PO QAM 11/11/20 Liraglutide [Saxenda] 1.2 mg SQ DAILY 09/22/21 Fluticasone Nasal [place] [Flonase Nasal [place]] 1 spray EA NOSTRIL DAILY 11/01/21 HYDROcodone/APAP 5-325MG [[place] 5-325] 1 tab PO Q6HR PRN #12 tab 11/02/21
[2021-11-08 14:30] VITALS: BP 112/75; PULSE 73; RESP 18; TEMP 97.9
== END | disposition home or self-care (01) ==
LOC: PNWHC3 13:02
PROVIDERS: ATTEND Physician Assistant Medical
DX: M47.896 Other spondylosis, lumbar region (principal); M51.36 Other intervertebral disc degeneration, lumbar region
CPT/HCPCS: 99211

== ENCOUNTER 2021-12-22 09:22 | Day surgery (SDC) | payer BC ==
[~2021-12-22 09:22] MED LIST changes: -DEXAMETHASONE SOD PHOSPHATE 4 MG/ML 1 ML VIAL IV ONE; -HYDROmorphone 0.5 MG/0.5 ML SYRINGE IVP PRN; +LIDOCAINE 1% (10MG/ML) FOR IV START INTRADERMA PRN; -ONDANSETRON 4 MG/2 ML VIAL IVP ONE
[2021-12-22 09:54] VITALS: RESP 16; TEMP 97.1
[2021-12-22] MEDS ORDERED: ROPIVACAINE 5MG/ML 20ML VIAL ONE (10:19)
[2021-12-22] MEDS ORDERED: MIDAZOLAM 2 MG/2 ML VIAL ONE (10:19)
[2021-12-22] MEDS ORDERED: fentaNYL (PF) 50 MCG/ML 2 ML AMP ONE (10:19)
[2021-12-22] MEDS ORDERED: methylPREDNISolone ACETATE 40 MG/ML 1 ML VIAL ONE (10:19)
--- NOTE | 2021-12-22 10:48 | P.PCN ---
Date of Procedure: 12/22/21 Procedure(s) Performed: PREOPERATIVE DIAGNOSIS: 1-Lumbar Spondylosis with Facet Arthropathy without myelopathy. 2- Lumber degenerative disc disease. POSTOPERATIVE DIAGNOSIS: 1- Lumbar Spondylosis with Facet Arthropathy without myelopathy. 2- Lumber degenerative disc disease. PROCEDURES : Bilateral Radiofrequency thermocoagulation, L3 , L4 , and L5 medial branch, with fluoroscopic guidance (fluoroscopy images available in the radiology department) ( to denervate the facet joint at bilateral L4-5 ,and L5-S1 levels ). ANESTHESIA: Monitored anesthesia care as per anesthesia department . EBL: Minimal PROCEDURE INDICATION: The patient with low back pain secondary to lumbar facet arthropathy who had more than 80% relief of her pain with previous diagnostic lumbar medial branch block with bupivacaine. PROCEDURE DESCRIPTION / TECHNIQUE: The patient was seen and identified in the preoperative area. Risks, benefits, complications, including but not limited to risk of infection ,bleeding , allergic reactions to the medications and no complete pain releife , and alternatives were discussed with the patient, the patient agreed to proceed with the procedure and signed the consent. IV was started. Vital signs remained stable throughout the procedure. Patient was taken to the OR and time out was completed. The patient was placed in the prone position on the procedure table. The lumber area was prepped and draped in the usual sterile fashion. . Vital signs were closely monitored during the procedure .IV sedation was used during the procedure to decrease patients anxiety. Using AP and then oblique fluoroscopy, the ``eye of the Mango dog co rresponding to the connection between the superior and transverse articular processes of right L3, L4, and L5 were identified, marked, and localized with 1% lidocaine. Subsequently, a 18 -ip radiofrequency cannula with a 10- mm active tip was advanced guided by fluoroscopy to each of the``eyes of the Mango dog at right L3, L4, and L5. Each site then underwent sensory testing at 50 Hz and 0 to 1 volt and motor testing at 2.5 Hz and 0 to 3 volt with local stimulation, but no radicular symptoms down the legs. Thereafter each sites underwent radiofrequency thermocoagulation at 80 degrees celsius for 90 seconds after injecting 0.5 ml of PF Ropivacaine 1ml, then after the thermocoagulation done , 1 ml of the block solution containing Depo-Medrol 20 mg and 3 ml of Ropivacaine 0.5% was injected at the right L3 , L4 , and L5 , levels after negative aspiration of CSF and blood and with no paresthesias. Cannulas were retracted while injecting lidocaine 1% until the needle is out. The same procedure was repeated at the level of Left L3, L4, and L5 levels. At the end of the procedure, the skin was cleansed and bandages were applied. COMPLICATIONS: No acute complications. DISPOSITION / PLANS: The patient was placed in a supine position and transferred to the recovery area in a stable condition for observation and was discharged from the recovery room after meeting discharge criteria. Home discharge instructions given to the patient by the staff. The patient was reexamined prior to discharge. The patient will schedule a follow up in the clinic in 2-4 weeks.
[2021-12-22] MEDS ORDERED: IV FLUID CONTINUATION 600 ML IV ONE (10:52)
--- NOTE | 2021-12-22 10:55 | FL ---
EXAMINATION TYPE: FL guided pain mgmt statistic DATE OF EXAM: 12/22/2021 CLINICAL HISTORY: Low back pain. TECHNIQUE: Fluoroscopy. COMPARISON: None. FINDINGS: Fluoroscopic guidance was provided during pain relief procedure performed by Dr. Hills . A total of 17 seconds of fluoroscopic time was utilized during the procedure and 6 spot images are acquired. Images acquired shows needle localization at several levels in the lower lumbar spine. IMPRESSION: As Above.
[2021-12-22 11:18] VITALS: BP 118/75; PULSE 82
== END 2021-12-22 11:37 | disposition home or self-care (01) ==
LOC: ORPAIN 09:22
PROVIDERS: ATTEND Specialist
DX: M47.816 Spondylosis without myelopathy or radiculopathy, lumbar region (principal); M51.36 Other intervertebral disc degeneration, lumbar region
CPT/HCPCS: 64635; 64636; J2250; J1030; J3010; J2795

== ENCOUNTER → 2022-01-08 | Outpatient (CLI) | payer BC ==
--- NOTE | 2022-01-08 12:37 | CT ---
EXAMINATION TYPE: CT abdomen wo/w con DATE OF EXAM: 01/08/2022 COMPARISON: CT 07/18/2021 HISTORY: Renal Cyst CT DLP: 1672.3 mGycm Automated exposure control for dose reduction was used. TECHNIQUE: Helical acquisition of images was performed from the lung bases through the top of iliac crest to include entire abdomen. Patient received oral contrast only. CONTRAST: Performed with Oral Contrast and without and with IV Contrast, patient injected with 100 mL of Isovue 300. FINDINGS: Lack of contrast limits the exam. LUNG BASES: No significant abnormality is appreciated. LIVER/GB: No significant abnormality is appreciated. PANCREAS: No significant abnormality is seen. SPLEEN: No significant abnormality is seen. ADRENALS: No significant abnormality is seen. KIDNEYS: No significant interval change is seen. High attenuation is noted in the exophytic lateral l esion at the right kidney towards the lower pole similar to prior exam, lesion measures approximately 14 mm in AP dimension and is similar to prior exam. The lower dense focus at the midpole measures ap proximately 2 cm and is similar to prior exam. At the lower pole the right kidney there is a calcific ation along the region of the papilla similar to prior, there is no hydronephrosis bilaterally. Small exophytic low dense focus is present laterally at the inferior pole left kidney similar to prior exa m. No evident ureteral calcification proximally. BOWEL: No significant abnormality is seen. LYMPH NODES: No significant abnormality is appreciated. OSSEOUS STRUCTURES: No significant interval change is seen. FREE AIR: No Free Air visible ASCITES: None visible. RETROPERITONEAL ADENOPATHY: No Retroperitoneal Adenopathy visible. OTHER: Inflammatory change along anterior abdominal wall shows a similar appearance IMPRESSION: FINDINGS ARE SIMILAR TO PRIOR EXAM, NONCONTRAST STUDY
== END | disposition home or self-care (01) ==
LOC: RADCTMAIN 09:15
PROVIDERS: ATTEND Urology
DX: N28.1 Cyst of kidney, acquired (principal)
CPT/HCPCS: 82565; 84520; 74170; 36415; Q9967

== ENCOUNTER → 2022-01-08 | Outpatient (CLI) | payer BC ==
[2022-01-08 13:35] VITALS: BP 144/83; PULSE 76; RESP 18
--- NOTE | 2022-01-08 14:13 | P.PN ---
Subjective Progress Note Date: 01/08/22 Principal diagnosis: A 61 yr old male with a history of severe and chronic low back pain secondary to lumbar degenerative disc diseases and lumbar spondylosis with facet arthropathy and BL sacroiliitis presents today for evaluation status post bilateral RFA L4-L5, L5-S1. He states he experienced 90% pain relief status post procedure. Pain level is 0 out of 10 in the lower aspects of the lumbar spine, but 2 out of 10 in the tailbone region. Pain is sharp, shooting with ra diation of pain to the right hip and right groin more than the left. Pain escalates as high as 6 out of 10 in intensity with sitting for periods of 20 minutes or more. Pain is alleviated with ejection's, ice, physical therapy in January 2021, chiropractic treatments currently, daily home stretching regimen, massage therapy in October 2020 and rest. Interventional pain procedures completed include BL RFA L3-L5. BL SI joint injections Patient is currently on DENIES Patient denies any side effects of the medication(s), denies excessive drowsiness or sleepiness, denies suicidal ideation and reports that the current pain medication is helping to control the pain and improve activities of daily living. Patient denies any motor or sensory deficits. Patient denies any fever or night sweats, denies any change in the bowel movements or urination. Physical Examination: -Constitutional: Cooperative. Not in acute distress . -HEENT: Neck is supple. No lymphadenopathy. No thyromegaly. Normal thyroid size. Eyes: No ptosis , no icterus, no photophobia. ENT: No auditory deficits. Normal oropharynx. No Thrush. - Respiratory: Chest clear to auscultations bilaterally. No wheezing. No rhonchi. - Cardiovascular: Regular rate and rhythm. S1 / S2 , no S3 , no S4. - Gastrointestinal: Abdomen soft no tenderness. Bowel sounds positive in all four quadrants. No organomegaly. - Genitourinary: Deferred. - Neurologic: Cranial nerve II to XII intact. No focal neurological deficits. - Psychatric: Alert & oriented x 3. Matching mood & appropriate affect. Judgment and insight intact. - Lymphatic: No Lymphadenopathy. - Musculoskeletal: Cervical spine: Muscle bulk/ tone/ strength in the bilateral upper extremities normal. Facet loading test cervical area positive. Lumbar spine: Motor bulk/ tone/ strength lower extremities , thigh and legs : 5/5 Deep tendon reflexes : Normal Knee Jerk. Normal Ankle Jerk . Vertebral body tenderness to palpation over Lumbar Facet Loading Test positive Straight Leg Raise: positive at 30 degrees right side/ left side Gaenslen's Test positive Sacral spine : Severe tenderness over the Sacroiliac joint: right side / left side Range of motion: Flexion of the lumbar spine <60 degrees Range of motion: Extension of the lumbar spine <20 degrees Gaenslen's Test positive Neisha test: positive right side / left side Assessment and plan: Chronic low back pain secondary to lumbar degenerative disc disease , lumbar spondylosis with facet arthropathy without myelopathy, BL Sacroiliitis Recommendation of BL SI joint injections. May need a series of inje ctions, up to one every 3 months, to obtain optimal pain relief. Risks, benefits of procedure discussed and pt verbalized understanding. Denies anticoagulant use or medical history of diabetes. All patient questions answered I have spent 31 minutes on patient care today. Dr Hills was available by phone for the evaluation of this patient. The time was used to review the medical records including relevant urine studies and Prescription history (MAPs), review of the available imaging, evaluation and examination of the patient, coordination of care with the medical staff and if applicable referring physicians, as well as creation of the medical record Objective - Vital Signs Vital signs: Vital Signs Temp Pulse 76 01/08/22 13:30 Resp 18 01/08/22 13:30 BP 144/83 01/08/22 13:30 Pulse Ox 98 01/08/22 13:30 Intake & Output 01/07/22 01/08/22 01/08/22 18:59 06:59 18:59 Weight 102.058 kg PQRS Measure Charge Sheet Mode of Arrival: Ambulatory - Pain Location Right Buttock Non-Pharmacological Interventions: Chiropractic Treatment, Home Exercise, Ice, Inactivity, Massage, Physical Therapy, Position/Reposition, Sitting, Stretching Pharmacological Interventions: Block PQRS Narrative: Smoking Status Never smoker Blood Pressure 144/83 Pain Intensity [Right Buttock] 2 Scale Used Numeric (1 - 10) Hx Alcohol Use (MH) Yes Home Medications: Ambulatory Orders Atorvastatin [Lipitor] 10 mg PO QAM 12/31/[address] Vidal 1 dose SQ QMONTH 03/10/20 Verapamil HCl [Verapamil ER] 240 mg PO QAM 11/11/20 Liraglutide [Saxenda] 1.2 mg SQ DAILY 09/22/21 Fluticasone Nasal [place] [Flonase Nasal [place]] 1 spray EA NOSTRIL DAILY 11/01/21
== END | disposition home or self-care (01) ==
LOC: PNWHC3 13:12
PROVIDERS: ATTEND Specialist
DX: M47.896 Other spondylosis, lumbar region (principal); M51.36 Other intervertebral disc degeneration, lumbar region
CPT/HCPCS: 99211

== ENCOUNTER 2022-02-13 08:33 | Day surgery (SDC) | payer BC ==
[2022-02-13 09:28] VITALS: RESP 18; TEMP 97.3
[2022-02-13] MEDS ORDERED: ROPIVACAINE 5MG/ML 20ML VIAL ONE (09:44)
[2022-02-13] MEDS ORDERED: methylPREDNISolone ACETATE 40 MG/ML 1 ML VIAL ONE (09:44)
[2022-02-13] MEDS ORDERED: methylPREDNISolone ACETATE 80 MG/ML 1 ML VIAL ONE (09:44)
[2022-02-13] MEDS ORDERED: MIDAZOLAM 2 MG/2 ML VIAL ONE (09:44)
[2022-02-13] MEDS ORDERED: fentaNYL (PF) 50 MCG/ML 2 ML AMP ONE (09:44)
--- NOTE | 2022-02-13 10:06 | P.PCN ---
Date of Procedure: 02/13/22 Procedure(s) Performed: Procedure= bilateral sacroiliac joints steroid injection under fluoroscopy guidance (fluoroscopy image stored on file in the radiology Department ) Preoperative diagnosis= 1-sacroiliitis 2-lumbar degenerative disc disease 3- lumbar facet arthropathy Postoperative diagnosis=Same as preop Diagnosis . Complication = none Condition= stable Anesthesia= moderate sedation with intravenous Versed 2 mg , and fentanyl 100 micrograms . Indication for the procedure= patient complaining of low back pain , examination was positive for severe tenderness over the sacroiliac joints bilaterally and patient diagnosed with sacroiliitis, for this reason he was good candidate for sacroiliac joint steroid injection. Description of the procedure= procedure risk and benefits discussed with the patient, including but not limited, risk of infection and bleeding, and ALLERGIC reaction to the medication and not complete pain relief and patient agreed with the preceding patient taken to the operating room, placed in prone position or standard monitors applied to the patient then after induction of anesthesia back prepped with chlorhexidine 3 times , Then under strict sterile technique, first I did the right sacroiliac joint the which was identified under fluoroscopy guidance been local infiltration of the skin and subcu interstitial with lidocaine 1% then 22-gauge [place]incke Needle advanced slowly under fluoroscopy and placed in the right sacroiliac joint needle placement confirmed with AP and oblique and lateral view and after appropriate needle placement confirmed and after negative aspiration, or heme , then Ropivacaine 0.5% 4 mL, and 40 mg of Depo-Medrol mixed together and injected in the right sacroiliac joint after negative aspiration patient tolerated the procedure well without any complication. Then the left sacroiliac joint steroid injection done under strict sterile technique local infiltration of the skin and subcu interstitial at the location of the left sacroiliac joint then a 22-gauge [place]incke Needle advanced slowly under fluoroscopy time placed in the left sacroiliac joint, needle placement confirmed with AP and oblique and lateral view then after appropriate needle placement confirmed and after negative aspiration 0.5% Ropivacaine 4 mL and 40 mg of Depo-Medrol injected in the left sacroiliac joint after negative aspiration patient tolerated the procedure well that any complications and she will follow up in clinic 3 weeks
[2022-02-13] MEDS ORDERED: IV FLUID CONTINUATION 1,000 ML IV ONE (10:12)
[2022-02-13 10:26] VITALS: BP 116/76; PULSE 68
--- NOTE | 2022-02-13 15:38 | FL ---
EXAMINATION TYPE: FL guided pain mgmt statistic DATE OF EXAM: 02/13/2022 FLUOROSCOPY Fluoroscopy time of 18 seconds was used during bilateral SI joint injections. 2 image/s document/s t he procedure.
== END 2022-02-13 10:41 | disposition home or self-care (01) ==
LOC: ORPAIN 08:33
PROVIDERS: ATTEND Specialist
DX: M46.1 Sacroiliitis, not elsewhere classified (principal); M51.36 Other intervertebral disc degeneration, lumbar region; M47.816 Spondylosis without myelopathy or radiculopathy, lumbar region
CPT/HCPCS: 27096; J2250; J1040; J3010; J2795; 99152

== ENCOUNTER → 2022-03-07 | Outpatient (CLI) | payer BC ==
[2022-03-07 13:38] VITALS: BP 132/82; PULSE 78; RESP 18; TEMP 98.3
--- NOTE | 2022-03-07 13:39 | P.PAINPG ---
Objective - Vital Signs Vital signs: Intake & Output 03/06/22 03/07/22 03/07/22 18:59 06:59 18:59 Weight 100.698 kg PQRS Measure Charge Sheet Comment: A 61 yr old male with a history of severe and chronic low back pain secondary to lumbar degenerative disc diseases and lumbar spondylosis with facet arthropathy presents today for an evaluation s/p BL SI joint injection. Pt states he experienced 50% pain relief s/p procedure. Pain level is currently at 2/10 in intensity, intermittent sharp pain in the lower aspect of his lumbar spine/tail bone with radiation of pain towards the BL inner thighs. Pain escalates as high as 4/10 in intensity with activity. Pain is provoked by sitting/standing/walking for periods of 20 min or more. Pain is alleviated with PT in February 2020, massage therapy semi monthly x 15 yrs up until 8 mo ago, chiropractic treatments every 2 months, heat, ice, topicals, home based stretching regimen, repositioning and rest. Interventional pain procedures completed include BL SI joint injection, BL RFA L3-L5 Patient is currently on DENIES Patient denies any side effects of the medication(s), denies excessive drowsiness or sleepiness, denies suicidal ideation and reports that the current pain medication is helping to control the pain and improve activities of daily living. Patient denies any motor or sensory deficits. Patient denies any fever or night sweats, denies any change in the bowel movements or urination. Physical Examination: -Constitutional: Cooperative. Not in acute distress . - Neurologic: Cranial nerve II to XII intact. No focal neurological deficits. - Psychatric: Alert & oriented x 3. Matching mood & appropriate affect. Judgment and insight intact. - Musculoskeletal: Cervical spine: Muscle bulk/ tone/ strength in the bilateral upper extremities normal Vertebral body tenderness to palpation over Spurling test positive Distraction test positive Facet loading test positive Thoracic spine Muscle bulk / tone/ strength in the bilateral paraspinal muscles normal Vertebral body tender to palpation over Facet loading test positive Lumbar spine: Motor bulk/ tone/ strength lower extremities , thigh and legs : 5/5 Deep tendon reflexes : Normal Knee Jerk. Normal Ankle Jerk . Vertebral body tenderness to palpation over Lumbar Facet Loading Test positive Straight Leg Raise: positive at 30 degrees right side/ left side Gaenslen's Test positive Sacral spine : Severe tenderness over the Sacroiliac joint: right side / left side Range of motion: Flexion of the lumbar spine <60 degrees Range of motion: Extension of the lumbar spine <20 degrees Gaenslen's Test positive Jose's Test positive Neisha test: positive right side > left side Thigh Thrust Test Sacral Thrust Test Assessment and plan: Chronic low back pain secondary to lumbar degenerative disc disease , lumbar spondylosis with facet arthropathy without myelopathy Recommendation of BL SI joint injection. May need a series of injections, up to every 3 mo as needed, for optimal pain relief. Risks, benefits of procedure discussed and pt verbalized understanding. Denies anticoagulant use or medical history of diabetes. All patient questions answered MAPS reviewed and it was appropriate. Prescription refill for Diclofenac gel apply to [facility] BID prn pain disp 1 tube w 1 refill. I have spent less than 30 minutes on patient care today. Dr Hills was available by phone for the evaluation of this patient. The time was used to review the medical records including relevant urine studies and Prescription history (MAPs), review of the available imaging, evaluation and examination of the patient, coordination of care with the medical staff and if applicable referring physicians, as well as creation of the medical record PQRS Narrative: Smoking Status Never smoker Hx Alcohol Use (MH) Yes Home Medications: Ambulatory Orders Atorvastatin [Lipitor] 10 mg PO QAM 12/31/[address] Vidal 1 dose SQ QMONTH 03/10/20 Verapamil HCl [Verapamil ER] 240 mg PO QAM 11/11/20 Liraglutide [Saxenda] 1.2 mg SQ DAILY 09/22/21 Fluticasone Nasal [place] [Flonase Nasal [place]] 1 spray EA NOSTRIL DAILY PRN 11/01/21 Controlled Substance Measures - Controlled Substance Measures Is patient prescribed a controlled substance at discharge?: No
== END | disposition home or self-care (01) ==
LOC: PNWHC3 13:04
PROVIDERS: ATTEND Specialist
DX: M47.896 Other spondylosis, lumbar region (principal); M51.36 Other intervertebral disc degeneration, lumbar region
CPT/HCPCS: 99211

== ENCOUNTER → 2022-04-25 | Outpatient (CLI) | payer BC ==
[2022-04-25 14:10] VITALS: BP 148/99; PULSE 83; RESP 18; TEMP 98
--- NOTE | 2022-04-25 14:47 | P.PAINPG ---
Objective - Vital Signs Vital signs: Vital Signs Temp 98.0 F 04/25/22 13:56 Pulse 83 04/25/22 13:56 Resp 18 04/25/22 13:56 BP 148/99 04/25/22 13:56 Pulse Ox 97 04/25/22 13:56 FiO2 Intake & Output 04/24/22 04/25/22 04/25/22 18:59 06:59 18:59 Weight 101.605 kg PQRS Measure Charge Sheet Mode of Arrival: Ambulatory Comment: A 61 yr old male with a history of severe and chronic low back pain secondary to lumbar degenerative disc diseases and lumbar spondylosis with facet arthropathy & BL Sacroiliitis presents today for evaluation s/p BL SI joint injection. Pt states he received 30% pain relief x 2 weeks s/p procedure. Pain level is currently at /10 in intensity, constant, localized in R lower lumbar spine, dull/ achy/ sore in character w pain shooting towards the R glutes. Pain is provoked by walking/ standing for periods of 20 min or more, or lifting. Pain is alleviated with PT in 2020, home exercise regimen, massage gun use, chiropractic treatments semi monthly, heat, ice, medications (Tylenol, biofreeze gel), repositioning and rest. Interventional pain procedures completed include BL SI joint injection, R TFESI L4-L5, BL RFA L3-L5 Patient is currently on Tylenol, Biofreeze gel. Patient denies any side effects of the medication(s), denies excessive drowsiness or sleepiness, denies suicidal ideation and reports that the current pain medication is helping to control the pain and improve activities of daily living. Patient denies any motor or sensory deficits. Patient denies any fever or night sweats, denies any change in the bowel movements or urination. Physical Examination: -Constitutional: Cooperative. Not in acute distress . - Neurologic: Cranial nerve II to XII intact. No focal neurological deficits. - Psychatric: Alert & oriented x 3. Matching mood & appropriate affect. Judgment and insight intact. - Musculoskeletal: Cervical spine: Muscle bulk/ tone/ strength in the bilateral upper extremities normal Vertebral body tenderness to palpation over Spurling test positive Distraction test positive Facet loading test positive Thoracic spine Muscle bulk / tone/ strength in the bilateral paraspinal muscles normal Vertebral body tender to palpation over Facet loading test positive Lumbar spine: Motor bulk/ tone/ strength lower extremities , thigh and legs : 5/5 R>L paraspinal TTP over L1-S1 Deep tendon reflexes : Normal Knee Jerk. Normal Ankle Jerk . Vertebral body tenderness to palpation over Lumbar Facet Loading Test positive Straight Leg Raise: positive at 30 degrees right side/ left side Gaenslen's Test positive Sacral spine : Severe tenderness over the Sacroiliac joint: right side / left side Range of motion: Flexion of the lumbar spine <60 degrees Range of motion: Extension of the lumbar spine <20 degrees Gaenslen's Test positive Jose's Test positive Neisha test: positive right side / left side Thigh Thrust Test Sacral Thrust Test Assessment and plan: Chronic low back pain secondary to lumbar degenerative disc disease , lumbar spondylosis with facet arthropathy without myelopathy Recommendation of TPIs of the BL L1-S1 paraspinal muscles. May need a series of injections, up to every 2-3 mo, for sufficient pain relief. Risks, benefits of procedure discussed and pt verbalized understanding. Denies anticoagulant use or medical history of diabetes. All patient questions answered MAPS reviewed and it was appropriate. I have spent less than 30 minutes on patient care today. Dr Hills was available by phone for the evaluation of this patient. The time was used to review the medical records including relevant urine studies and Prescription history (MAPs), review of the available imaging, evaluation and examination of the patient, coordination of care with the medical staff and if applicable referring physicians, as well as creation of the medical record - Pain Location Right Lower Back Non-Pharmacological Interventions: Chiropractic Treatment, Home Exercise, Massage, Physical Therapy, Position/Reposition, Sitting, Stretching Pharmacological Interventions: PRN Medication, Topical Medication PQRS Narrative: Smoking Status Never smoker Blood Pressure 148/99 Pain Intensity [Right Lower 2 Back] Scale Used Numeric (1 - 10) Hx Alcohol Use (MH) Yes Home Medications: Ambulatory Orders Atorvastatin [Lipitor] 10 mg PO QAM 12/31/[address] Vidal 1 dose SQ QMONTH 03/10/20 Verapamil HCl [Verapamil ER] 240 mg PO QAM 11/11/20 Liraglutide [Saxenda] 1.2 mg SQ DAILY 09/22/21 Fluticasone Nasal [place] [Flonase Nasal [place]] 1 spray EA NOSTRIL DAILY PRN 02/23/22 Diclofenac Sodium Gel [Voltaren Gel] 100 gm TOPICAL BID 30 Days #100 g 03/07/22 Controlled Substance Measures - Controlled Substance Measures Is patient prescribed a controlled substance at discharge?: No
== END ==
LOC: PNWHC3 13:37
PROVIDERS: ATTEND Specialist
DX: M51.36 Other intervertebral disc degeneration, lumbar region (principal); M47.816 Spondylosis without myelopathy or radiculopathy, lumbar region; G89.29 Other chronic pain
CPT/HCPCS: 99211

== ENCOUNTER 2022-05-31 06:20 | Day surgery (SDC) | payer BC ==
[2022-05-29 15:23] VITALS: BMI 33.3
[~2022-05-31 06:20] MED LIST changes: -LACTATED RINGERS 1,000 ML IV SCH
[2022-05-31 06:39] VITALS: RESP 16; TEMP 97.3
[2022-05-31] MEDS: LACTATED RINGERS 1,000 ML IV SCH ×2 (06:51→07:15)
[2022-05-31 06:55] LABS: Glucose,Whole Blood 88 mg/dL (70-110)
[2022-05-31] MEDS ORDERED: fentaNYL (PF) 50 MCG/ML 2 ML AMP ONE (07:19)
[2022-05-31] MEDS ORDERED: MIDAZOLAM 2 MG/2 ML VIAL ONE (07:19)
[2022-05-31] MEDS ORDERED: methylPREDNISolone ACETATE 40 MG/ML 1 ML VIAL ONE (07:19)
[2022-05-31] MEDS ORDERED: ROPIVACAINE 5 MG/ML 20 ML AMPULE ONE (07:19)
[2022-05-31] MEDS ORDERED: IV FLUID CONTINUATION 1,000 ML IV ONE (07:29)
--- NOTE | 2022-05-31 07:31 | P.PCN ---
Date of Procedure: 05/31/22 Procedure(s) Performed: Procedure= trigger point injections lumbar paraspinal muscles L2 to S1 (5 trigger points injected on the right side lumbar paraspinal muscles, and 2 on the left side lumbar paraspinal muscles) Preoperative diagnosis= 1-sacroiliitis 2-myofascial pain syndrome lumbar para spinal muscles 3-lumbar facet arthropathy Postoperative diagnosis=Same as preop Diagnosis . Complication = none Condition= stable Anesthesia= moderate sedation with intravenous Versed 2 mg , and fentanyl 100 micrograms . Sedation start time 07:19 sedation and time 07:25 Indication for the procedure= patient complaining of low back pain , examination was positive for multiple trigger point in the lumbar paraspinal muscles bilaterally and patient diagnosed with myofascial pain syndrome, for this reason he was good candidate for either pontine injections. Description of the procedure= procedure risk and benefits discussed with the patient, including but not limited, risk of infection and bleeding, and ALLERGIC reaction to the medication and not complete pain relief and patient agreed with the preceding patient taken to the operating room, placed in sitting position or standard monitors applied to the patient then after induction of anesthesia back prepped with chlorhexidine 3 times , then after that each of the trigger point injected with 2 mL of the mixture of ropivacaine 0.5% 14 ML mixed with 40 mg of Depo-Medrol, and 2 mL of the mixture injected after negative aspiration using 25-gauge needle, injection done after negative aspiration and there was no paresthesia during the injection, total of 5 trigger point identified and injected in the lumbar paraspinal muscles and to trigger point identified and injected on the left side lumbar paraspinal muscles, patient tolerated the procedure well without any complications
[2022-05-31 07:41] VITALS: BP 142/83; PULSE 76
== END 2022-05-31 08:10 | disposition home or self-care (01) ==
LOC: ORPAIN 06:20
PROVIDERS: ATTEND Specialist
DX: M46.1 Sacroiliitis, not elsewhere classified (principal); M79.18 Myalgia, other site; M47.816 Spondylosis without myelopathy or radiculopathy, lumbar region
CPT/HCPCS: 20553; J2250; J1030; J3010; J2795

== ENCOUNTER → 2022-06-21 | Outpatient (CLI) | payer BC ==
[2022-06-21 13:48] VITALS: BP 128/84; PULSE 83; RESP 18; TEMP 98.3
--- NOTE | 2022-06-21 14:59 | P.PAINPG ---
PQRS Measure Charge Sheet Comment: A 61 yr old male with a history of severe and chronic low back pain secondary to lumbar degenerative disc diseases and lumbar spondylosis with facet arthropathy without myelopathy presents today for evaluation s/p TPIs of L2-S1. Pt states he experienced 80% pain relief x 3 wks s/p procedure. Pain level is currently at 1/10 in intensity, intermittent, localized in R lower back, dull/ achy in character w shooting towards the RLE. Pain is provoked by walking/ sitting for periods of 20 min or more. Pain is alleviated with PT x 6 wks in 2019, home exercise regimen, massage gun use, chiropractic treatments monthly x 40 yrs, heat, ice, topicals, repositioning and rest. Interventional pain procedures completed include BL TPIs L2-S1. Patient is currently on Denies Patient denies any side effects of the medication(s), denies excessive drowsiness or sleepiness, denies suicidal ideation and reports that the current pain medication is helping to control the pain and improve activities of daily living. Patient denies any motor or sensory deficits. Patient denies any fever or night sweats, denies any change in the bowel movements or urination. Physical Examination: -Constitutional: Cooperative. Not in acute distress . - Neurologic: Cranial nerve II to XII intact. No focal neurological deficits. - Psychatric: Alert & oriented x 3. Matching mood & appropriate affect. Judgment and insight intact. - Musculoskeletal: Cervical spine: Muscle bulk/ tone/ strength in the bilateral upper extremities normal Vertebral body tenderness to palpation over Spurling test positive Distraction test positive Facet loading test positive Thoracic spine Muscle bulk / tone/ strength in the bilateral paraspinal muscles normal Vertebral body tender to palpation over Facet loading test positive Lumbar spine: Motor bulk/ tone/ strength lower extremities , thigh and legs : 5/5 Deep tendon reflexes : Normal Knee Jerk. Normal Ankle Jerk . Vertebral body tenderness to palpation over R paraspinal TTP over L3-S1 Lumbar Facet Loading Test positive Straight Leg Raise: positive at 30 degrees right side/ left side Gaenslen's Test positive Sacral spine : Severe tenderness over the Sacroiliac joint: right side / left side Range of motion: Flexion of the lumbar spine <60 degrees Range of motion: Extension of the lumbar spine <20 degrees Gaenslen's Test positive Jose's Test positive Neisha test: positive right side / left side Thigh Thrust Test Sacral Thrust Test Assessment and plan: Chronic low back pain secondary to lumbar degenerative disc disease , lumbar spondylosis with facet arthropathy without myelopathy Pt exhibited sufficient and satisfactory pain relief w TPIs. He will manage his residual pain w home modifying remedies and may return to this clinic on an as needed basis. Risks, benefits of procedure discussed and pt verbalized understanding. Denies anticoagulant use or medical history of diabetes. Filled Flexeril 10mg QHS prn spasms #30 NR. Use, side effects and adverse reactions discussed and pt verbalized understanding. All patient questions answered I have spent less than 30 minutes on patient care today. Dr Hills was available by phone for the evaluation of this patient. The time was used to review the medical records including relevant urine studies and Prescription history (MAPs), review of the available imaging, evaluation and examination of the patient, coordination of care with the medical staff and if applicable referring physicians, as well as creation of the medical record PQRS Narrative: Smoking Status Never smoker Hx Alcohol Use (MH) Yes Home Medications: Ambulatory Orders Atorvastatin [Lipitor] 10 mg PO QAM 12/31/[address] Vidal 1 dose SQ QMONTH 03/10/20 Verapamil HCl [Verapamil ER] 240 mg PO QAM 11/11/20 Liraglutide [Saxenda] 1.2 mg SQ DAILY 09/22/21 Fluticasone Nasal [place] [Flonase Nasal [place]] 1 spray EA NOSTRIL DAILY PRN 11/01/21 Diclofenac Sodium Gel [Voltaren Gel] 100 gm TOPICAL BID 30 Days #100 g 03/07/22 Cyclobenzaprine [Flexeril] 10 mg PO HS PRN 30 Days #30 tab 06/21/22 Controlled Substance Measures - Controlled Substance Measures Is patient prescribed a controlled substance at discharge?: No
== END | disposition home or self-care (01) ==
LOC: PNWHC3 12:48
PROVIDERS: ATTEND Specialist
DX: M54.50 Low back pain, unspecified (principal); M48.062 Spinal stenosis, lumbar region with neurogenic claudication; M54.30 Sciatica, unspecified side
CPT/HCPCS: 99211

== ENCOUNTER → 2022-07-16 | Outpatient (CLI) | payer BC ==
--- NOTE | 2022-07-16 10:32 | CT ---
EXAMINATION TYPE: CT abdomen wo/w con DATE OF EXAM: 07/16/2022 COMPARISON: Prior CT January 08, 2022 and older studies. HISTORY: Renal cyst CT DLP: 2219 mGycm Automated exposure control for dose reduction was used. TECHNIQUE: Helical acquisition of images was performed from the lung bases through the top of iliac crest to include entire abdomen. CONTRAST: Performed without Oral Contrast and without and with IV Contrast, patient injected with 70 mL of Isov ue 300. FINDINGS: LUNG BASES: Some coronary artery calcifications are redemonstrated. LIVER/GB: No significant abnormality is appreciated. PANCREAS: Mild fat replaced atrophy redemonstrated. SPLEEN: Prior vague 1.0 cm hyperdense area spleen not as well seen on today's study. ADRENALS: No significant abnormality is seen. KIDNEYS: Cortical thinning in both kidneys redemonstrated. No nephrolithiasis on noncontrast images. There are 3 hypodense lesions suggesting small thin-walled cysts throughout the right kidney redemons trated, largest upper to midpole level measures 2.1 cm long axis series 10 image 34 increase in size from prior. Other lesions fairly stable in size. The mid pole lesion is slightly more hyperdense vers us other 2 lesions. Left kidney has 1.1 cm partially exophytic thin-walled cyst midpole level laterally image 42 series 1 0 slightly larger from prior. No new solid or cystic masses in either kidney. No hydronephrosis bilat erally. BOWEL: No significant abnormality is seen. LYMPH NODES: No significant abnormality is seen. OSSEOUS STRUCTURES: No significant abnormality is seen. FREE AIR: No free air is visualized. OTHER: Mild to moderate peripheral calcified plaque of the aorta extends into branch vessels. Scar ti ssue over the anterior abdominal wall is redemonstrated with hyperdense material or suspected mesh ag ain seen. Oval fat density lesion right anterior upper pelvis echo image 67 is unchanged from prior s tudies favoring subcutaneous lipoma. IMPRESSION: Findings consistent with chronic medical renal disease are present as detailed above. Wily e slow interval growth of thin-walled cysts. Some lesions too small to further characterize presumed benign. No definitive new suspicious solid or cystic masses.
== END | disposition home or self-care (01) ==
LOC: RADCTMAIN 08:48
PROVIDERS: ATTEND Urology
DX: N28.1 Cyst of kidney, acquired (principal)
CPT/HCPCS: 74170; Q9967

== ENCOUNTER → 2022-08-08 | Outpatient (CLI) | payer BC ==
[2022-08-08 09:42] VITALS: BP 145/78; PULSE 86; RESP 18; TEMP 98.2
--- NOTE | 2022-08-08 14:43 | P.PAINPG ---
Objective - Vital Signs Vital signs: Vital Signs Temp 98.2 F 08/08/22 09:38 Pulse 86 08/08/22 09:38 Resp 18 08/08/22 09:38 BP 145/78 08/08/22 09:38 Pulse Ox 95 08/08/22 09:38 FiO2 Intake & Output 08/07/22 08/08/22 08/08/22 18:59 06:59 18:59 Weight 102.058 kg PQRS Measure Charge Sheet Mode of Arrival: Ambulatory Comment: A 61 yr old male with a history of severe and chronic low back pain secondary to lumbar DDD and spondylosis with facet arthropathy without myelopathy presents today for LBP evaluation. Pt states he experienced 95% relief x 5 mo s/p procedure. Pain level is currently at 7/10 in intensity, constant, localized in the lower lumbar spine, achy/ sharp in character w shooting towards the BLEs. Pain is provoked by standing/ walking for periods of 15 min or more. Pain is alleviated with PT in 2019, massage gun use at home, home exercise regimen daily, alternating heat & ice, medications (Flexeril, Aleve OTC), sitting and rest. Interventional pain procedures completed include BL Lumbar TPIs, BL RFA L3-L5 Patient is currently on Flexeril 10mg Patient denies any side effects of the medication(s), denies excessive drowsiness or sleepiness, denies suicidal ideation and reports that the current pain medication is helping to control the pain and improve activities of daily living. Patient denies any motor or sensory deficits. Patient denies any fever or night sweats, denies any change in the bowel movements or urination. Physical Examination: -Constitutional: Cooperative. Not in acute distress . - Neurologic: Cranial nerve II to XII intact. No focal neurological deficits. - Psychatric: Alert & oriented x 3. Matching mood & appropriate affect. Judgment and insight intact. - Musculoskeletal: Cervical spine: Muscle bulk/ tone/ strength in the bilateral upper extremities normal Vertebral body tenderness to palpation over Spurling test positive Distraction test positive Facet loading test positive Thoracic spine Muscle bulk / tone/ strength in the bilateral paraspinal muscles normal Vertebral body tender to palpation over Facet loading test positive Lumbar spine: Motor bulk/ tone/ strength lower extremities , thigh and legs : 5/5 Deep tendon reflexes : Normal Knee Jerk. Normal Ankle Jerk . Vertebral body tenderness to palpation over Lumbar Facet Loading Test positive TTP over BL L4-L5, L5-S1 facets Straight Leg Raise: positive at 30 degrees right side/ left side Gaenslen's Test positive Sacral spine : Severe tenderness over the Sacroiliac joint: right side / left side Range of motion: Flexion of the lumbar spine <60 degrees Range of motion: Extension of the lumbar spine <20 degrees Gaenslen's Test positive Neisha test: positive right side / left side Thigh Thrust Test Sacral Thrust Test Assessment and plan: Chronic low back pain secondary to lumbar degenerative disc disease, spondylosis with facet arthropathy without myelopathy Recommendation of BL RFA L4-L5, L5-S1. Pt exhibited sufficient and substantial pain relief w prior RFA procedure. Risks, benefits of procedure discussed and pt verbalized understanding. Admits to anticoagulant use or medical history of diabetes. Protocol for discontinuation/ continuation of medications shreya procedure discussed. All patient questions answered I have spent less than 30 minutes on patient care today. Dr Hills was available by phone for the evaluation of this patient. The time was used to review the medical records including relevant urine studies and Prescription history (MAPs), review of the available imaging, evaluation and examination of the patient. - Pain Location Lower Back Non-Pharmacological Interventions: Heat, Home Exercise, Ice, Inactivity, Massage, Physical Therapy, Position/Reposition, Sitting, Stretching Pharmacological Interventions: Block, Epidural, PRN Medication, Topical Medication PQRS Narrative: Smoking Status Never smoker Blood Pressure 145/78 Pain Intensity [Lower Back] 3 Scale Used Numeric (1 - 10) Hx Alcohol Use (MH) Yes Home Medications: Ambulatory Orders Atorvastatin [Lipitor] 10 mg PO QAM 12/31/[address] Vidal 1 dose SQ QMONTH 03/10/20 Verapamil HCl [Verapamil ER] 240 mg PO QAM 11/11/20 Liraglutide [Saxenda] 1.2 mg SQ DAILY 09/22/21 Fluticasone Nasal [place] [Flonase Nasal [place]] 1 spray EA NOSTRIL DAILY PRN 11/01/21 Diclofenac Sodium Gel [Voltaren Gel] 100 gm TOPICAL BID 30 Days #100 g 03/07/22 Cyclobenzaprine [Flexeril] 10 mg PO HS PRN 30 Days #30 tab 06/21/22 Controlled Substance Measures - Controlled Substance Measures Is patient prescribed a controlled substance at discharge?: No
== END ==
LOC: PNWHC3 09:25
PROVIDERS: ATTEND Specialist
DX: M47.816 Spondylosis without myelopathy or radiculopathy, lumbar region (principal); M51.36 Other intervertebral disc degeneration, lumbar region; G89.29 Other chronic pain; Z79.01 Long term (current) use of anticoagulants; E11.9 Type 2 diabetes mellitus without complications; Z79.84 Long term (current) use of oral hypoglycemic drugs
CPT/HCPCS: 99211

== ENCOUNTER 2022-09-07 06:00 | Day surgery (SDC) | payer BC ==
[~2022-09-07 06:00] MED LIST changes: +LACTATED RINGERS 1,000 ML IV SCH; -LIDOCAINE 1% (10MG/ML) FOR IV START INTRADERMA PRN
[2022-09-07 06:21] VITALS: TEMP 97.9
[2022-09-07 06:34] LABS: Glucose,Whole Blood 97 mg/dL (70-110)
[2022-09-07] MEDS ORDERED: TRIAMCINOLONE ACETONIDE 40 MG/ML 1 ML VIAL ONE (07:04)
[2022-09-07] MEDS ORDERED: fentaNYL (PF) 50 MCG/ML 2 ML AMP ONE (07:04)
[2022-09-07] MEDS ORDERED: ROPIVACAINE 5 MG/ML 20 ML AMPULE ONE (07:04)
[2022-09-07] MEDS ORDERED: MIDAZOLAM 2 MG/2 ML VIAL ONE (07:04)
--- NOTE | 2022-09-07 07:48 | P.PCN ---
Date of Procedure: 09/07/22 Surgeon: Kenyetta Hare Pathology: none sent Condition: stable Disposition: PACU Description of Procedure: PREOPERATIVE DIAGNOSIS: Lumbar spondylosis without myelopathy, morbid obesity POSTOPERATIVE DIAGNOSIS: Lumbar spondylosis without myelopathy,morbid obesity PROCEDURES : Bilateral Radiofrequency thermocoagulation L4-L5, and L5-S1 medial branch, with fluoroscopic guidance ANESTHESIA: IV moderate conscious sedation with versed and fentanyl by the anesthesia Departmentand local infiltration with lidocaine 1% 5 ml Physician:Kenyetta Hare MD EBL: Minimal PROCEDURE INDICATION: The patient with low back pain secondary to lumbar facet arthropathy who had significant relief of pain with previous diagnostic lumbar medial branch block with Ropivacaine0.5%. PROCEDURE DESCRIPTION / TECHNIQUE: The patient was seen and identified in the preoperative area. Risks, benefits, complications, including but not limited to risk of infection ,bleeding , allergic reactions to the medications and no complete pain relief , and alternatives were discussed with the patient, the patient agreed to proceed with the procedure and signed the consent. IV was started. Vital signs remained stable throughout the procedure. Patient was taken to the OR and time out was completed. The patient was placed in the prone position on the procedure table. The lumber area was prepped and draped in the usual sterile fashion. . Vital signs were closely monitored during the procedure .IV sedation was used during the procedure to decrease patients anxiety. The target points were identified as follows: For the L5-S1 level which corresponds to the dorsal ramus of L5 the target point was at the superior medial aspect of the sacral ala on the Rt side of the spine on the AP view of fluoroscopy and for the L3, and L4 medial branches the target points were at the connection between the transverse process and the superior articular process of L4, and L5 vertebra respectively on the Rt oblique view of fluoroscopy. skin was marked, and localized with 1% lidocaineat these points. Subsequently, an 18 -gt radiofrequency needles with a 10-mm curved active tips were advanced guided by fluoroscopy to each of the target points mentioned above in a superior medial direction to get the active tips as parallel as possible to the medial branches tracks. AP, oblique, and lateral views of fluoroscopy were used to verify needle tips position. Each level then underwent motor testing at 2.5 Hz and 0 to 3 volt with local stimulation, but no radicular symptoms down the legs. I then injected 1 mL of lidocaine 1% in each needle before starting radiofrequency thermocoagulation at 80 degrees celsius for 90 seconds. After that I injected 1 ml of PF Ropivacaine 0.5%(3 mls) with 40 mg of Kenalog, 1 mL of this mixture was given in each needle before taking the needles out intact. Then the left side with the same levels was done in the same manner. At the end of the procedure, the skin was cleansed and bandages were applied. A copy of needle placement fluoroscopy was saved on the C-arm machine. COMPLICATIONS: No acute complications. DISPOSITION / PLANS: The patient was placed in a supine position and transferred to the recovery area in a stable condition for observation and was discharged from the recovery room after meeting discharge criteria. Home discharge instructions given to the patient by the staff. The patient was reexamined prior to discharge. The patient will schedule a follow up in the clinic in 2-4 weeks. Sedation time: Sedation was provided by the anesthesia Department
[2022-09-07] MEDS ORDERED: IV FLUID CONTINUATION 1,000 ML IV ONE (07:50)
[2022-09-07 07:53] VITALS: RESP 12
[2022-09-07 08:07] VITALS: BP 145/80; PULSE 70
--- NOTE | 2022-09-07 09:22 | FL ---
Intraoperative/procedural fluoroscopic services were provided for lumbar facet block. Total fluorosco py time is 26 seconds with a total of 5 submitted images to PACS. Please see the operative note for f urther details.
== END 2022-09-07 08:19 | disposition home or self-care (01) ==
LOC: ORPAIN 06:00
PROVIDERS: ATTEND Anesthesiology
DX: M47.816 Spondylosis without myelopathy or radiculopathy, lumbar region (principal); I10 Essential (primary) hypertension; G47.33 Obstructive sleep apnea (adult) (pediatric); E66.01 Morbid (severe) obesity due to excess calories
CPT/HCPCS: 64635; 64636 ×2; J2250; J3301; J3010; J2795

== ENCOUNTER → 2022-09-27 | Outpatient (CLI) | payer BC ==
--- NOTE | 2022-09-28 10:08 | MR ---
EXAMINATION TYPE: MR lumbar spine wo con DATE OF EXAM: 09/27/2022 1:29 PM COMPARISON: 07/16/2022 CT abdomen. CLINICAL INDICATION:Male, 61 years old with history of M48.061 SPINAL STENOSIS, LUMBAR REGION; TECHNIQUE: Multi planar, multi sequence imaging was performed utilizing: T1-weighted, T2-weighted, a nd turbo inversion recovery imaging of the lumbar spine. IV Contrast: None. FINDINGS: Alignment: The lumbar vertebral bodies have preserved heights and alignment. Cord: The conus medullaris and the distal spinal cord appear unremarkable with regards to their signa l intensity and morphology. Bones/Discs: No abnormal bony edema on inversion recovery sequences. There are scattered biconcave de formities most pronounced from L3 through L5. Superior and inferior endplate Schmorl's nodes are pres ent at L1.. Multilevel disc desiccation is present. T12 vertebral body limbus vertebrae suggested. T12-L1: No evidence of significant spinal canal stenosis or neural foraminal stenosis. L1-L2: No evidence of significant spinal canal stenosis or neural foraminal stenosis. L2-L3: Disc bulge and facet joint arthropathy result in mild spinal canal and mild bilateral neural f oraminal stenosis. L3-L4: Disc bulge and facet joint arthropathy result in mild to moderate spinal canal and mild to mod erate bilateral neural foraminal stenosis. L4-L5: Disc bulge and facet joint arthropathy result in mild to moderate spinal canal and mild to mod erate bilateral neural foraminal stenosis. L5-S1: The disc is rounded posterior morphology without significant spinal canal stenosis. Facet join t arthropathy with mild to moderate neural foraminal stenosis. Other findings: None. IMPRESSION: 1. No definitive evidence of disc herniation or significant spinal canal stenosis. 2. Multilevel disc degeneration with associated osteoarthritic changes.
== END | disposition home or self-care (01) ==
LOC: RADMRIMAIN 12:30
PROVIDERS: ATTEND Family Medicine
DX: M51.36 Other intervertebral disc degeneration, lumbar region (principal); M47.816 Spondylosis without myelopathy or radiculopathy, lumbar region; M48.061 Spinal stenosis, lumbar region without neurogenic claudication
CPT/HCPCS: 72148

== ENCOUNTER → 2022-09-27 | Outpatient (CLI) | payer BC ==
[2022-09-27 11:10] VITALS: BP 138/82; PULSE 71; RESP 18; TEMP 97.8
--- NOTE | 2022-09-27 14:17 | P.PAINPG ---
PQRS Measure Charge Sheet Comment: A 61 yr old male with a history of severe and chronic low back pain secondary to lumbar DDD and spondylosis with facet arthropathy without myelopathy presents today for evaluation s/p BL RFA L3-L5. Pt states he experienced 95% pain relief s/p procedure. Pain level is provoked at 10 /10 in intensity, constant, localized in the lumbar spine, achy in character w shooting towards the BL glutes. Pain is provoked by sitting for periods of 30 min. Pain is alleviated with PT in 2019, massage at home in 2021, chiropractic treatments monthly, heat, ice, use of a "ball roller," repositioning and rest. Interventional pain procedures completed include BL RFA L3-L5, BL SI injections, LESIs Patient is currently on Denies Patient denies any side effects of the medication(s), denies excessive drowsiness or sleepiness, denies suicidal ideation and reports that the current pain medication is helping to control the pain and improve activities of daily living. Patient denies any motor or sensory deficits. Patient denies any fever or night sweats, denies any change in the bowel movements or urination. Physical Examination: -Constitutional: Cooperative. Not in acute distress . - Neurologic: Cranial nerve II to XII intact. No focal neurological deficits. - Psychatric: Alert & oriented x 3. Matching mood & appropriate affect. Judgment and insight intact. - Musculoskeletal: Cervical spine: Muscle bulk/ tone/ strength in the bilateral upper extremities normal Vertebral body tenderness to palpation over Spurling test positive Distraction test positive Facet loading test positive Thoracic spine Muscle bulk / tone/ strength in the bilateral paraspinal muscles normal Vertebral body tender to palpation over Facet loading test positive Lumbar spine: Motor bulk/ tone/ strength lower extremities , thigh and legs : 5/5 Deep tendon reflexes : Normal Knee Jerk. Normal Ankle Jerk . Vertebral body tenderness to palpation over Lumbar Facet Loading Test positive Straight Leg Raise: positive at 30 degrees right side/ left side Gaenslen's Test positive Sacral spine : Severe tenderness over the Sacroiliac joint: right side / left side Range of motion: Flexion of the lumbar spine <60 degrees Range of motion: Extension of the lumbar spine <20 degrees Gaenslen's Test positive BL Neisha test: positive right side / left side BL Thigh Thrust Test Sacral Thrust Test BL Assessment and plan: Chronic LBP secondary to lumbar DDD, spondylosis with facet arthropathy without myelopathy, BL Sacroiliitis Recommendation of BL SI injection. May need a series, up to every 3 mo, for optimal pain relief. Risks, benefits of procedure discussed and pt verbalized understanding. All patient questions answered I have spent less than 30 minutes on patient care today. Dr Hills was available by phone for the evaluation of this patient. The time was used to review the medical records including relevant urine studies and Prescription history (MAPs), review of the available imaging, evaluation and examination of the patient, coordination of care with the medical staff and if applicable refe rring physicians, as well as creation of the medical record PQRS Narrative: Smoking Status Never smoker Hx Alcohol Use (MH) Yes Home Medications: Ambulatory Orders Atorvastatin [Lipitor] 10 mg PO QAM 12/31/18 Verapamil HCl [Verapamil ER] 240 mg PO QAM 11/11/20 Liraglutide [Saxenda] 1.2 mg SQ DAILY 09/22/21 Fluticasone Nasal [place] [Flonase Nasal [place]] 1 spray EA NOSTRIL DAILY PRN 11/01/21 Cyclobenzaprine [Flexeril] 10 mg PO HS PRN 30 Days #30 tab 06/21/22 Diclofenac Sodium Gel [Voltaren Gel] 100 gm TOPICAL BID PRN 09/06/22 Controlled Substance Measures - Controlled Substance Measures Is patient prescribed a controlled substance at discharge?: No
== END ==
LOC: PNWHC3 09:10
PROVIDERS: ATTEND Specialist
DX: M47.816 Spondylosis without myelopathy or radiculopathy, lumbar region (principal); M51.36 Other intervertebral disc degeneration, lumbar region
CPT/HCPCS: 99211

== ENCOUNTER → 2023-08-09 | Outpatient (CLI) | payer BC ==
--- NOTE | 2023-08-11 21:48 | MR ---
EXAMINATION TYPE: MR abdomen wo/w con DATE OF EXAM: 08/09/2023 5:36 PM CLINICAL INDICATION:Male, 62 years old with history of N28.1 CYST OF KIDNEY, ACQUIRED; PHH, Renal Cys t, Urinary frequency COMPARISON: CT scan abdomen from 07/16/2022. TECHNIQUE: Multiplanar multi-sequence imaging was performed without contrast. Post contrast imaging was performed. Post IV contrast subtraction images were also submitted for review. IV Contrast: 15 cc Gadobutrol FINDINGS: LOWER CHEST: No gross irregularity. ABDOMEN Liver: No evidence for hepatic steatosis or cirrhosis. Gallbladder and Bile ducts: No evidence for ductal dilation, or biliary stricture or evidence of chol edocholithiasis. The gallbladder is within normal limits. Pancreas: No ductal dilation. No evidence for solid mass. Spleen: Suspected flash filling hemangioma measuring up to 13 mm. Additional smaller hemangiomas also felt to be present measuring less than 1 cm. Adrenal glands: Unremarkable. Kidneys: No evidence for obstructive uropathy. No suspicious renal masses. Bilateral high T2 simple a ppearing renal cysts. Cysts measuring measuring up to 27 mm on the right and 14 mm the left. Mild brock al cortical atrophy changes. Stomach and Bowel: No evidence for bowel wall thickening or evidence for obstruction. Scattered colon ic diverticula. Peritoneum: No evidence of pneumoperitoneum or free fluid. Vasculature: No aortic aneurysm. Musculoskeletal: The osseous structures appear intact. Lymph Nodes: No gross evidence for lymphadenopathy. Abdominal wall: Unremarkable. IMPRESSION: Bilateral simple appearing renal cysts. No suspicious solid renal neoplasms identified.
== END | disposition home or self-care (01) ==
LOC: RADMRIMAIN 16:12
PROVIDERS: ATTEND Urology
DX: N28.1 Cyst of kidney, acquired (principal); R35.0 Frequency of micturition
CPT/HCPCS: 74183; A9585

== ENCOUNTER 2023-10-02 09:48 | Day surgery (SDC) | payer BC ==
[2023-09-27 11:44] VITALS: BMI 35.2
[~2023-10-02 09:48] MED LIST changes: +HYDROmorphone 0.5 MG/0.5 ML SYRINGE IVP PRN
[2023-10-02 10:45] VITALS: RESP 16; TEMP 97.8
[2023-10-02] MEDS ORDERED: LIDOCAINE 1% INJ 10MG/ML (20 ML MDV) ONE (11:51)
[2023-10-02] MEDS ORDERED: PROPOFOL 10 MG/ML 20 ML VIAL IV ONE (11:51)
--- NOTE | 2023-10-02 12:01 | P.PCN ---
Date of Procedure: 10/02/23 Procedure(s) Performed: BRIEF HISTORY: Patient is a 62-year-old, pleasant, white male scheduled for an upper endoscopy as a part of evaluation of history of GERD.. He is presently on Protonix 40 mg daily with good relief in symptoms. He scheduled for an upper endoscopy was completed reflux disease. PROCEDURE PERFORMED: Esophagogastroduodenoscopy with biopsy. PREOPERATIVE DIAGNOSIS: Long-standing history of GERD. IV sedation per anesthesia. PROCEDURE: After informed consent was obtained, the patient was brought into the endoscopy unit. IV sedation was administered by Anesthesia under continuous monitoring. Initially the Olympus GIF-140 video endoscope was inserted into the mouth. Esophagus intubated without any difficulty. It was gradually advanced into the stomach and duodenum and carefully examined. The bulb and the second part of the duodenum appeared normal. The scope at this time was withdrawn to the stomach, adequately insufflated with air, and upon careful examination, mucosa of the antrum had mild gastritis and biopsies were done from this area. Mucosa of the, body, cardia and the fundus appeared normal. The scope was then withdrawn into the esophagus. The GE junction was located at 39 cm from the incisors. Small hiatal hernia noted. There was a short segment of Riley's esophagus extending 3-4 mm proximal to the junction which was biopsied. The esophagus appeared normal. There were no erosions or ulcerations seen and the patient tolerated the procedure well. IMPRESSION: 1. 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 2. Mild antral gastritis.. RECOMMENDATIONS: The findings of this examination were discussed with the tahir martell as well as his family.. He was advised to continue with Protonix 40 mg daily and follow antireflux measures. If the biopsy confirms the presence of Riley's esophagus, he can have a repeat upper endoscopy in 3 years.
[2023-10-02 12:52] VITALS: BP 156/91; PULSE 77
== END 2023-10-02 13:02 | disposition home or self-care (01) ==
LOC: ORWHC2ENDO 09:48
PROVIDERS: ATTEND Internal Medicine Gastroenterology
DX: K29.50 Unspecified chronic gastritis without bleeding (principal); K44.9 Diaphragmatic hernia without obstruction or gangrene; K22.70 Barrett's esophagus without dysplasia; K21.9 Gastro-esophageal reflux disease without esophagitis; K31.9 Disease of stomach and duodenum, unspecified; I10 Essential (primary) hypertension; E78.5 Hyperlipidemia, unspecified; G47.33 Obstructive sleep apnea (adult) (pediatric); Z79.899 Other long term (current) drug therapy; Z98.890 Other specified postprocedural states
CPT/HCPCS: 43239; J2001; J2704; 88305

== ENCOUNTER 2024-01-10 08:59 | Day surgery (SDC) | payer BC ==
[~2024-01-10 08:59] MED LIST changes: -HYDROmorphone 0.5 MG/0.5 ML SYRINGE IVP PRN; -LACTATED RINGERS 1,000 ML IV SCH; +LIDOCAINE 1% (10MG/ML) FOR IV START INTRADERMA PRN
[2024-01-10] MEDS: LACTATED RINGERS 1,000 ML IV SCH (09:14)
[2024-01-10 09:42] VITALS: TEMP 98.6
[2024-01-10] MEDS ORDERED: PROPOFOL 10 MG/ML 20 ML VIAL IV ONE (10:31)
--- NOTE | 2024-01-10 10:50 | P.PCN ---
Date of Procedure: 01/10/24 Procedure(s) Performed: BRIEF HISTORY: Patient is a 63-year-old pleasant white male scheduled for an elective colonoscopy as a part of evaluation of prior history of colon polyps. Last colonoscopy was 5 years ago. PROCEDURE PERFORMED: Colonoscopy. PREOPERATIVE DIAGNOSIS: History of colon polyps. IV sedation per Anesthesia. PROCEDURE: After informed consent was obtained, the patient, was brought into the endoscopy unit. IV sedation was administered by Anesthesia under continuous monitoring. Digital rectal examination was normal. Initially the Olympus CF-160 flexible video colonoscope was then inserted in the rectum, gradually advanced into the cecum without any difficulty. Careful examination was performed as the scope was gradually being withdrawn. Ileocecal valve and the appendiceal orifice were visualized and appeared normal. Prep was excellent. Mucosa of the cecum, ascending colon, transverse colon, descending colon, sigmoid colon, and rectum appeared normal. Scattered sigmoid diverticulosis. Retroflexion was performed in the rectum and small internal hemorrhoid were seen. The patient tolerated the procedure well. IMPRESSION: Normal-appearing colon from rectum to cecum with millions of colorectal neoplasia. Scattered sigmoid diverticulosis and small internal hemorrhoids RECOMMENDATIONS: Findings of this examination were discussed with the patient as well as his family. He was advised to have repeat screening colonoscopy in 10 years..
[2024-01-10 11:09] VITALS: BP 135/50; PULSE 70; RESP 16
== END 2024-01-10 11:46 | disposition home or self-care (01) ==
LOC: ORWHC2ENDO 08:59
PROVIDERS: ATTEND Internal Medicine Gastroenterology
DX: Z12.11 Encounter for screening for malignant neoplasm of colon (principal); K57.30 Diverticulosis of large intestine without perforation or abscess without bleeding; K64.8 Other hemorrhoids; I10 Essential (primary) hypertension; E78.5 Hyperlipidemia, unspecified; G47.33 Obstructive sleep apnea (adult) (pediatric); K21.9 Gastro-esophageal reflux disease without esophagitis; Z87.891 Personal history of nicotine dependence; Z86.010 Personal history of colon polyps; Z79.899 Other long term (current) drug therapy
CPT/HCPCS: 45378; J2704

== ENCOUNTER → 2024-04-30 | Outpatient (CLI) | payer BC ==
--- NOTE | 2024-05-19 16:08 | MR ---
Patient: Quinton Merida L Ordering Physician: Unknown, Unknown ID: [id number] Phone, Pager: Phone: N/A Pager: N/A : [phone] Age/Gender: 63Y, M Primary Location: N/A Procedure: MRI LUMBAR WO CONT RAST Study Date: 04/30/2024 7:45:16 AM EXAMINATION TYPE: MR lumbar spine wo con DATE OF EXAM: 04/30/2024 COMPARISON: MRI 09/27/2022 HISTORY: Low back pain radiating into right. CONTRAST: 0 mL intravenous Gadavist. TECHNIQUE: Multiplanar, multisequence images of the lumbar spine were acquired. FINDINGS: Cord terminates at the T12-L1 level. Disc desiccation is present at L1-2. Milder disc alexey ccation is present at L2-3. Disc heights appear preserved. Vertebral body heights are preserved. Some Schmorl's node formation within L1 may be present. A limbus vertebra may be present T12. These findi ngs appear stable from comparison. L5-S1: No significant disc bulge or disc herniation. No spinal canal stenosis. No foraminal stenosi s. Facet hypertrophy is present. L4-L5: No significant disc bulge or disc herniation. No spinal canal stenosis. No foraminal stenosi s. Right hemilaminectomy is present. Facet hypertrophy is present. L3-L4: No significant disc bulge or disc herniation. No spinal canal stenosis. Facet hypertrophy has posterior lateral thecal sac compression predominantly on the right. L2-L3: No significant disc bulge or disc herniation. No spinal canal stenosis. No foraminal stenosi s. L1-L2: No significant disc bulge or disc herniation. No spinal canal stenosis. No foraminal stenosi s. T12-L1: No significant disc bulge or disc herniation. No spinal canal stenosis. No foraminal stenos is. IMPRESSION: 1. Facet hypertrophy greatest on the right at L4-3-4 has moderate posterior lateral thecal sac impres larry. No spinal canal stenosis present. Findings appear stable from comparison. 2. Postsurgical changes from a right hemilaminectomy L4-5. No spinal canal stenosis.
== END | disposition home or self-care (01) ==
LOC: RADMRIMAIN 07:47
PROVIDERS: ATTEND Orthopaedic Surgery Orthopaedic Surgery of the Spine
DX: M47.26 Other spondylosis with radiculopathy, lumbar region (principal)
CPT/HCPCS: 72148